=== PATIENT | male | born 1945 | race Caucasian/White ===

== ENCOUNTER → 2016-11-02 | Outpatient (CLI) | payer MEDICARE, OTHER | LOC: RAD 08:41 | PROVIDERS: ATTEND Surgery | DX: I71.4 Abdominal aortic aneurysm, without rupture (principal) | CPT/HCPCS: 76770 ==

== ENCOUNTER → 2016-11-08 | Outpatient (CLI) | payer MEDICARE, OTHER ==
--- NOTE | 2016-11-08 10:34 | RADIOLOGY REPORT (SQ) ---
EXAM DESCRIPTION: CT ABD/PELVIS WITH IV ORAL COMPLETED DATE/TIME: 11/08/2016 8:23 am REASON FOR STUDY: AAA W/O RUPTURE (I71.4) I71.4 ABDOMINAL AORTIC ANEURYSM, WITHOUT RUPTURE COMPARISON: None. TECHNIQUE: CT scan of the abdominal aorta extending to the iliac bifurcation performed with intraven ous contrast using helical scanning technique with dynamic intravenous contrast injection. Images rev iewed with lung, soft tissue, and bone windows. Reconstructed coronal and sagittal MPR images reviewe d. All images stored on PACS. Advanced 3D imaging as volume rendering, MIPS, SSD performed? yes All CT scanners at this facility use dose modulation, iterative reconstruction, and/or weight based d osing when appropriate to reduce radiation dose to as low as reasonably achievable (ALARA). [facility]: Dose Right [facility]: CareDose [facility]: Dose Right [facility]: Teradose 4D [facility]: Harbour Antibodies CONTRAST TYPE AND DOSE: 95mL Isovue 370- low osmolar. RENAL FUNCTION: Creatinine 0.7 LIMITATIONS: None. FINDINGS: AORTA AND VESSELS: 4.8 cm infrarenal abdominal aortic aneurysm. Heavy atherosclerotic reyna cification. Mesenteric and single bilateral renal arteries are patent. Heavily calcified iliac enoc ender. No geovani iliac artery aneurysm. No venous clot. Patent portal vein. LUNG BASES: Basilar bullous changes. Small hiatal hernia. LIVER: Normal size. No masses or dilated ducts. SPLEEN: Normal size. No focal lesions. PANCREAS: No masses. No significant calcifications. No adjacent inflammation or peripancreatic fluid collections. Pancreatic duct not dilated. GALLBLADDER: No identified stones by CT criteria. No inflammatory changes to suggest cholecystitis. ADRENAL GLANDS: No significant masses or asymmetry. RIGHT KIDNEY AND URETER: Numerous cysts. Small anterior exophytic 1.8 cm lesion is probably a compli cated cyst with Hounsfield units in the 50s. Incompletely evaluated. Remaining cysts are larger and generally simple. LEFT KIDNEY AND URETER: Nonobstructive nephrolithiasis. Cysts. No solid mass. RETROPERITONEUM: No retroperitoneal adenopathy, hemorrhage or masses. BOWEL AND PERITONEAL CAVITY: No masses or inflammatory changes. No free fluid or peritoneal masses. APPENDIX: Normal. ABDOMINAL WALL: No masses. No hernias. BONY STRUCTURES: No significant or acute findings. 3-D IMAGING: Confirms the above findings. OTHER: No other significant finding. IMPRESSION: Infrarenal abdominal aortic aneurysm measures 4.8 cm. TECHNICAL DOCUMENTATION: JOB ID: [id number] Quality ID # [id number]: Final reports with documentation of one or more dose reduction techniques (e.g., Au tomated exposure control, adjustment of the mA and/or kV according to patient size, use of iterative reconstruction technique) 2010 [employer]- All Rights Reserved
== END ==
LOC: RAD 07:16
PROVIDERS: ATTEND Surgery
DX: I71.4 Abdominal aortic aneurysm, without rupture (principal)
CPT/HCPCS: 74177; 82565

== ENCOUNTER 2016-12-14 05:30 | Inpatient (IN) | payer MEDICARE, OTHER ==
[2016-12-07 09:32] LABS: HEMATOCRIT 43.6 % (37.9-51.0); HEMOGLOBIN 14.6 g/dL (13.5-17.0); HGB HCT DIFFERENCE 0.2; MEAN CORPUSCULAR HEMOGLOBIN 32.5 pg (27.0-33.4); MEAN CORPUSCULAR HGB CONC 33.6 g/dL (32.0-36.0); MEAN CORPUSCULAR VOLUME 97 fl (80-97); RED BLOOD COUNT 4.51 10^6/uL (4.35-5.55); WHITE BLOOD COUNT 6.6 10^3/uL (4.0-10.5)
[2016-12-07 10:01] LABS: ALANINE AMINOTRANSFERASE 39 U/L (21-72); ALBUMIN 3.9 g/dL (3.5-5.0); ALKALINE PHOSPHATASE 61 U/L (38-126); ANION GAP 11 (5-19); ASPARTATE AMINO TRANSFERASE 28 U/L (17-59); BILIRUBIN,DIRECT 0.3 mg/dL (0.0-0.4); BILIRUBIN,TOTAL 0.6 mg/dL (0.2-1.3); BLOOD UREA NITROGEN 17 mg/dL (7-20); CALCIUM 8.9 mg/dL (8.4-10.2); CARBON DIOXIDE 24 mmol/L (22-30); CHLORIDE 106 mmol/L (98-107); CREATININE RESULT 0.73 mg/dL (0.52-1.25); GLUCOSE 129 mg/dL (75-110); POTASSIUM 4.3 mmol/L (3.6-5.0); SODIUM 141.2 mmol/L (137-145); TOTAL PROTEIN 6.5 g/dL (6.3-8.2)
--- NOTE | 2016-12-07 17:01 | EKG REPORT ---
SEVERITY:- ABNORMAL ECG - SINUS RHYTHM LEFT ANTERIOR FASCICULAR BLOCK : Confirmed by: Melissa Zelaya MD 07-Dec-2016 17:01:28
[~2016-12-14 05:30] MED LIST: AMPICILLIN SODIUM/SULBACTAM NA 3 GM in NORMAL SALINE 100 ML IV PRN; LACTATED RINGERS 1000 ML IV PRN; LIDOCAINE 0.5% INJ-PF (5 MG/ML) 50 ML SDV SUBCUT PRN
[2016-12-14] MEDS ORDERED: MIDAZOLAM 2 MG/2 ML INJ ONE (06:26)
[2016-12-14] MEDS ORDERED: FENTANYL CITRATE INJ/PF 100 MCG/2 ML AMPUL ONE (06:26)
[2016-12-14] MEDS ORDERED: FENTANYL CITRATE INJ/PF 250 MCG/5 ML AMPULE ONE (06:26)
[2016-12-14] MEDS ORDERED: MORPHINE SULFATE 10 MG/ML INJ ONE (06:27)
[2016-12-14] MEDS ORDERED: DEXMEDETOMIDINE INJ 80 MCG/20 ML VIAL IV ONE (06:27)
[2016-12-14] MEDS ORDERED: EPHEDRINE SULFATE INJ 50 MG/1 ML AMPULE ONE (06:27)
[2016-12-14] MEDS ORDERED: ACETAMINOPHEN 100 ML IV ONE (06:27)
[2016-12-14] MEDS ORDERED: PROPOFOL INJ 200 MG/20 ML VIAL IV ONE (06:27)
[2016-12-14] MEDS ORDERED: BUPIVACAINE INJ/PF LIPOSOME/PF 266 MG/20 ML SDV ONE (06:53)
[2016-12-14] MEDS ORDERED: BUPIVACAINE HCL 0.25 % INJ/PF (2.5 MG/1 ML) 30 ML VIAL ONE (06:53)
[2016-12-14] MEDS ORDERED: METOPROLOL SUCCINATE 25 MG TAB.SR.24H PO ONE (07:05)
[2016-12-14] MEDS ORDERED: FENTANYL CITRATE INJ/PF 100 MCG/2 ML AMPUL IV PRN ×3 (08:16)
[2016-12-14] MEDS ORDERED: MORPHINE SULFATE 10 MG/ML INJ IV PRN (08:16)
[2016-12-14] MEDS ORDERED: DIPHENHYDRAMINE HCL 50 MG/ML VIAL IV PRN (08:16)
[2016-12-14] MEDS ORDERED: MEPERIDINE HCL/PF INJ 25 MG/1 ML DISP.SYRIN IV PRN (08:16)
[2016-12-14] MEDS ORDERED: PROMETHAZINE HCL INJ 25 MG/1 ML VIAL IV PRN ×2 (08:16)
[2016-12-14] MEDS ORDERED: OXYCODONE-ACETAMINOPHEN 5-325 MG TABLET PO PRN ×2 (08:16)
[2016-12-14] MEDS ORDERED: PHARMACY COMMUNICATION ORDER MC NR (11:30)
[2016-12-14] MEDS ORDERED: GLUCAGON,HUMAN RECOMB 1 MG INJ SUBCUT PRN (11:36)
[2016-12-14] MEDS ORDERED: DEXTROSE 40% GEL 15 GM TUBE PO PRN ×2 (11:36)
[2016-12-14] MEDS ORDERED: DEXTROSE 50%-WATER 25 GM/50 ML DISP.SYRIN IV PRN ×2 (11:36)
--- NOTE | 2016-12-14 11:43 | Operative Report ---
Operative Report DATE OF SURGERY: 12/14/16 PREOPERATIVE DIAGNOSIS: Tubulovillous adenoma of the transverse colon; multiple colon polyps status post polypectomy POSTOPERATIVE DIAGNOSIS: Same OPERATION: 1. Laparoscopic conversion to open partial colectomy (distal transverse colon, splenic flexure, and proximal descending colon). . 2. Handsewn transverse-descending colostomy. 3. Partial omentectomy SURGEON: FLORIDA MARADIAGA CIGAR PACKER AND SORTER: CASEY ALVAREZ ANESTHESIA: GA TISSUE REMOVED OR ALTERED: Portion of colon; With specimen; portion of omentum COMPLICATIONS: none ESTIMATED BLOOD LOSS: 250 cc INTRAOPERATIVE FINDINGS: See below PROCEDURE: The patient was taken to the preop holding area the main operating room where general anesthesia was induced. Arms placed supine position legs tucked. The abdomen was exposed, prepped draped sterile fashion and instrumentation set up for laparoscopic possible conversion to open colectomy Surgical plan and surgical timeout were conducted Radiographic imaging and previous operative report reviewed. The findings were significant for a known tubulovillous adenoma of the distal transverse colon versus descending colon. We therefore prepared the patient for a proximal left colectomy. Skin was anesthetized 1% lidocaine with epinephrine. A supraumbilical vertical incision made and we immediately entered into the peritoneal cavity. A 5 mm port was inserted into the peritoneal cavity, and a 5 mm flexible scope was inserted. Under direct visualization for additional ports were placed 2 in the upper quadrant and 2 in the lower quadrants left and right respectively. Visualization the peritoneal cavity revealed no evidence of metastatic disease. There was significant adhesions between the greater omentum and the left upper quadrant. We began the operation by opening up the white line of Toldt along the left paracolic gutter with the patient positioned in an extreme right side down left side up. We took this up to the adhesions previously described and all of these adhesions between the omentum and the anterior and anterior lateral abdominal wall were taken down with LigaSure device. We encountered a minimal amount of bleeding. There was significant amount of redundant omentum and loss of tissue planes between the omentum and the splenic flexure of the colon. For this reason we decided to approach the transverse colon from patient's midline We could easily see the tattoo again in fact there were 2 tattoos stains 1 in the more proximal transverse colon just left of midline on the inferior caudal surface of the transverse colon, and a second tattoo in a more distal apical anterior position in the gastrocolic omentum. Photos were taken. We elevated the transverse colon, and began taking down the omentum inferiorly so that we can get to the antimesenteric side of the transverse colon. We proceeded again methodically with good visualization from the patient's right to the patient's left side heading toward the splenic flexure. Unfortunately after about 45 minutes of operating laparoscopically, it was concluded that the tissue planes in terms of th gastrocolic omentume from the transverse colon especially as we moved towards the splenic flexure were nearly completely fused. Therefore we decided to convert to an open operation. All laparoscopic instruments and ports removed. The patient was open to a standard midline incision from the subxiphoid to the umbilicus. This is approximately 15 cm in length. Bookwalter retractor was established. We examined the intra-abdominal anatomy and appreciated the known abdominal aortic aneurysm. We also appreciated the obscuring of the omental and transverse colon tissue planes as previously described Using a open hand-held LigaSure device, we took the gastrocolic omentum off of the anterior surface of the transverse colon from approximately 6-7 cm proximal to the most proximal inking spot then moving to the patient's left towards the splenic flexure. We repositioned our retractors and began mobilizing the entire splenic flexure and then used this is a entry point to communicate with the previous plane of dissection along the ascending colon. We now chose a suitable site for transection of the transverse colon proximal to the inking. This was accomplished with a NICOLE 55 stapler. We then scored the distal transverse mesocolon with cautery and the mesenteric tissue down with the LigaSure device. This was over the bare area so we were distal to the branches of the middle colic, and proximal to the left colic arteries. The splenic flexure was completely taken down under direct visualization with LigaSure device. We mobilized a further distance along the white line of Toldt distally so as to completely free up the midportion of the descending colon. A suitable site for transection of the descending colon approximately mid position was then taken and the colon divided with a second firing of the blue load NICOLE [address] Petersen took the specimen of the back table opened it and found the tumor at the more proximal inking spot. The specimen was subsequently sent to pathology with Dr. Garry Day examined it and felt that our margins were satisfactory. We now took down a portion of the omentum essentially a 30% omentectomy so as to free up the proximal transverse colon in anticipation of our anastomosis. The left colon had a few more attachments freed up so that the left colon mesentery was under no tension. We brought the transverse colon adjacent to the descending colon in anticipation initially of a stapled [id number] functional end-to-end anastomosis, but in my estimation, the degree of tension was too great. We will also dealing with the abdominal aortic aneurysm which produced some elevation to the retroperitoneal tissues. Furthermore shy of mobilizing more the proximal transverse colon, I felt that an alternative approach to the anastomosis was appropriate. Therefore we brought both the transverse colon and descending colon next to each other in a side to side railroad track fashion and completed a handsewn 2 layer anastomosis. This was accomplished with a running outer layer of 3-0 PDS suture and the inner running layer using 3-0 Vicryl suture. The length of the anastomosis was approximately 3 cm. The bowel was healthy and clean. There was no significant tension, and the vascularity was excellent. Once the anastomosis was complete, we were very satisfied with the lay of the tissue in terms of freedom from tension. We laid the anastomosis where it was generated, and did not formally closed and the mesenteric defect. Small bowel was returned to its anatomic position and the remaining omentum positioned into the pelvis. The nasogastric tube is confirmed to be in good position. This point felt the operation was complete. Peritoneal cavity irrigated out several times with warm saline, and there was no evidence of mechanical bleeding. We chose not to place a drain. The patient was hemodynamically stable throughout the entire course, and estimated blood loss to be approximately 250 cc. Patient made approximately 400 cc urine during the case. Sponge and counts were correct. Abdomen closed with 2 double-stranded #1 PDS sutures, all incisions closed with yong and approximately 40 cc of diluted Exparel instilled into the subcutaneous tissues. Postop procedure well, extubated and taken recovery in stable condition FOSTER Alvarez assisted with port insertion, tissue retraction, anastomosis completion and incision and staple closure as there was no general surgeon available to assist.
[2016-12-14] MEDS ORDERED: METOCLOPRAMIDE HCL INJ/PF 10 MG/2 ML SDV ONE (11:45)
[2016-12-14] MEDS ORDERED: PROMETHAZINE HCL INJ 25 MG/1 ML VIAL ONE (12:07)
[2016-12-14 13:30] LABS: HEMATOCRIT 37.4 % (37.9-51.0); HEMOGLOBIN 12.3 g/dL (13.5-17.0); HGB HCT DIFFERENCE -0.5; MEAN CORPUSCULAR HEMOGLOBIN 32.4 pg (27.0-33.4); MEAN CORPUSCULAR HGB CONC 32.9 g/dL (32.0-36.0); MEAN CORPUSCULAR VOLUME 99 fl (80-97); RED BLOOD COUNT 3.79 10^6/uL (4.35-5.55); RED CELL DISTRIBUTION WIDTH 13.4 % (11.5-14.0)
[2016-12-14] MEDS ORDERED: ONDANSETRON HCL INJ/PF 4 MG/2 ML SDV ONE ×2 (13:44→14:38)
[2016-12-14] MEDS ORDERED: DEXAMETHASONE SOD PHOSPHATE INJ 4 MG/1 ML VIAL ONE (14:38)
[2016-12-14] MEDS ORDERED: KETOROLAC TROMETHAMINE 60 MG/2 ML SDV ONE (14:38)
[2016-12-14] MEDS ORDERED: SUCCINYLCHOLINE CHLORIDE INJ 200 MG/10 ML VIAL ONE (14:38)
[2016-12-14] MEDS ORDERED: LIDOCAINE 2% INJ-PF (20 MG/ML) 10 ML AMPUL ONE (14:38)
[2016-12-14] MEDS ORDERED: GLYCOPYRROLATE INJ 0.4 MG/2 ML VIAL ONE (14:38)
[2016-12-14] MEDS ORDERED: ROCURONIUM BROMIDE INJ 50 MG/5 ML VIAL IV ONE (14:38)
[2016-12-14] MEDS ORDERED: NEOSTIGMINE METHYLSULFATE 10 MG/10 ML VIAL ONE (14:38)
[2016-12-14] MEDS: ACETAMINOPHEN 100 ML IV SCH ×3 (15:42→23:32)
[2016-12-14] MEDS: KETOROLAC TROMETHAMINE INJ/PF 30 MG/1 ML SDV IV SCH ×2 (17:14→23:32)
[2016-12-14] MEDS: MORPHINE SULFATE 10 MG/ML INJ IV PRN (22:02)
[2016-12-14] MEDS: AMPICILLIN SODIUM/SULBACTAM NA 3 GM in NORMAL SALINE 100 ML IV SCH (22:03)
[2016-12-15] MEDS: DEXTROSE 5%-LACTATED RINGERS 1,000 ML IV PRN ×2 (02:58→22:59)
[2016-12-15] MEDS: AMPICILLIN SODIUM/SULBACTAM NA 3 GM in NORMAL SALINE 100 ML IV SCH (05:58)
[2016-12-15] MEDS: KETOROLAC TROMETHAMINE INJ/PF 30 MG/1 ML SDV IV SCH ×4 (05:58→22:59)
[2016-12-15] MEDS: ACETAMINOPHEN 100 ML IV SCH ×4 (05:59→23:00)
--- NOTE | 2016-12-15 08:41 | PDOC PROGRESS REPORT ---
Subjective Progress Note for:: 12/15/16 Subjective:: Patient is postop day 1 status post partial colectomy, open. Patient did well overnight, with minimal nasogastric drainage. His pain is controlled. Physical Exam Vital Signs: Temp Pulse Resp BP Pulse Ox 98.3 F 49 L 16 126/67 H 93 12/14/16 23:45 12/14/16 23:45 12/14/16 23:45 12/14/16 23:45 12/15/16 00:03 Intake & Output 12/14/16 12/15/16 12/16/16 06:59 06:59 06:59 Intake Total 0 6410 Output Total 3305 Balance 0 3105 Weight 89.81 kg 88.1 kg General appearance: PRESENT: no acute distress GI/Abdominal exam: PRESENT: other - Abdominal binder in place; minimal abdominal distention Results Laboratory Results: 12/14/16 12:04 12/07/16 08:50 12/14/16 12/14/16 12:04 12:04 WBC 16.0 H RBC 3.79 L Hgb 12.3 L Hct 37.4 L MCV 99 H MCH 32.4 MCHC 32.9 RDW 13.4 Plt Count 127 L Blood Type A NEGATIVE Antibody Screen NEGATIVE Assessment & Plan - Diagnosis (1) Tubulovillous adenoma of colon Is this a current diagnosis for this admission?: YesPlan: Patient doing well status post open partial colectomy with handsewn colocolonic anastomosis, no postoperative complications thus far. Plan: 1. DC Guthrie catheter 2. DC nasogastric tube 3. Start sips of ice chips. 4. Ambulate patient in the hallways.
[2016-12-15] MEDS: MORPHINE SULFATE 10 MG/ML INJ IV PRN (22:59)
[2016-12-16] MEDS: ACETAMINOPHEN 100 ML IV SCH (05:33)
[2016-12-16] MEDS: KETOROLAC TROMETHAMINE INJ/PF 30 MG/1 ML SDV IV SCH ×4 (05:33→23:25)
--- NOTE | 2016-12-16 11:15 | PDOC PROGRESS REPORT ---
Subjective Progress Note for:: 12/16/16 Subjective:: Patient has had Guthrie catheter removed and he is voiding. He is taking a shower and has ambulated in the halls. He had one episode of flatus. Last night he had some pain management issues Physical Exam Vital Signs: Temp Pulse Resp BP Pulse Ox 97.9 F 52 L 18 210/86 H 96 12/16/16 07:55 12/16/16 07:55 12/16/16 07:55 12/16/16 07:55 12/16/16 07:55 Intake & Output 12/15/16 12/16/16 12/17/16 06:59 06:59 06:59 Intake Total 6410 700 Output Total 3305 475 Balance 3105 225 Weight 88.1 kg 87.5 kg General appearance: PRESENT: no acute distress GI/Abdominal exam: PRESENT: other - Nontender no peritoneal signs no rigidity operative incision well-healed. Abdomen slightly distended Results Laboratory Results: 12/14/16 12:04 12/07/16 08:50 Assessment & Plan - Diagnosis (1) Tubulovillous adenoma of colon Is this a current diagnosis for this admission?: YesPlan: Postoperative day 2 status post open partial colectomy with handsewn anastomosis doing reasonably well postoperative day 2 plan: 1. Resume home medications 2. Start clear liquids 3. Continue ambulation.
[2016-12-16] MEDS ORDERED: METOPROLOL SUCCINATE 25 MG TAB.SR.24H PO ONE (12:30)
[2016-12-16] MEDS ORDERED: LOSARTAN POTASSIUM 50 MG TABLET PO ONE (12:30)
[2016-12-16] MEDS: METFORMIN HCL 500 MG TABLET PO SCH (17:40)
[2016-12-16] MEDS: DEXTROSE 5%-LACTATED RINGERS 1,000 ML IV PRN (22:14)
[2016-12-16] MEDS: MORPHINE SULFATE 10 MG/ML INJ IV PRN (23:30)
[2016-12-17] MEDS: KETOROLAC TROMETHAMINE INJ/PF 30 MG/1 ML SDV IV SCH ×3 (05:27→17:47)
[2016-12-17] MEDS ORDERED: (PENDING PHARMACY ID) (Metformin Hcl [Metformin Hcl Er] 500 MG) PO SCH (08:00)
[2016-12-17] MEDS: METFORMIN HCL 500 MG TABLET PO SCH ×2 (09:00→17:47)
[2016-12-17] MEDS: METOPROLOL SUCCINATE 25 MG TAB.SR.24H PO SCH (09:32)
[2016-12-17] MEDS: LOSARTAN POTASSIUM 50 MG TABLET PO SCH (09:32)
[2016-12-17] MEDS: FINASTERIDE 5 MG TABLET PO SCH (09:32)
--- NOTE | 2016-12-17 13:18 | PROGRESS NOTE E ---
Progress Note NAME: COLLEEN GROVER : 1945 AGE: 71Y DATE: 12/17/2016 ROOM: 414 SUBJECTIVE: The patient is about 3 days post large bowel resection by Dr. Petersen. Last night he had some vomiting and therefore his feedings were held. This morning he had some flatus and no nausea or vomiting. His abdomen is soft and nontender. Incision site is clean and dry. PLAN: Resume his clear liquids this morning and increase to soft diet as tolerated. DICTATING PHYSICIAN: MOSES WHITTEN M.D. [id number] PHY#: [id number] ID: [id number] JOB#: [id number] ACCT: [id number] cc: >
[2016-12-17] MEDS: DEXTROSE 5%-LACTATED RINGERS 1,000 ML IV PRN (20:32)
[2016-12-18] MEDS: KETOROLAC TROMETHAMINE INJ/PF 30 MG/1 ML SDV IV SCH ×4 (00:28→18:30)
[2016-12-18] MEDS: DEXTROSE 5%-LACTATED RINGERS 1,000 ML IV PRN (06:03)
[2016-12-18] MEDS: LOSARTAN POTASSIUM 50 MG TABLET PO SCH (12:28)
[2016-12-18] MEDS: FINASTERIDE 5 MG TABLET PO SCH (12:28)
[2016-12-18] MEDS: METOPROLOL SUCCINATE 25 MG TAB.SR.24H PO SCH (12:28)
--- NOTE | 2016-12-18 12:38 | PROGRESS NOTE E ---
Progress Note NAME: COLLEEN GROVER : 1945 AGE: 71Y DATE: 12/18/2016 ROOM: 414 SUBJECTIVE: This morning the patient had just a small amount of bowel movement. He claims he also had a bowel movement last night. He was able to tolerate clear liquids this morning, but for lunch he felt full and can only drink a small amount of his Ensure. He claims his pain is still requiring parenteral pain medications. OBJECTIVE: ABDOMEN: On examination his abdomen is slightly distended but soft and nontender. Incision is clean and dry. PLAN: We will continue him on full liquids for now and as suggested also by Dr. Petersen to the nurse. Will continue him on IV Toradol. DICTATING PHYSICIAN: MOSES WHITTEN M.D. [id number] PHY#: [id number] ID: [id number] JOB#: [id number] ACCT: [id number] cc:MOSES WHITTEN M.D. >
[2016-12-18] MEDS: METFORMIN HCL 500 MG TABLET PO SCH ×2 (15:41→18:33)
[2016-12-18] MEDS ORDERED: HYDRALAZINE HCL INJ/PF 20 MG/1 ML SDV IV PRN (18:08)
[2016-12-19] MEDS: KETOROLAC TROMETHAMINE INJ/PF 30 MG/1 ML SDV IV SCH ×2 (02:08→06:06)
[2016-12-19] MEDS: FINASTERIDE 5 MG TABLET PO SCH (09:32)
[2016-12-19] MEDS: METOPROLOL SUCCINATE 25 MG TAB.SR.24H PO SCH (09:33)
[2016-12-19] MEDS: METFORMIN HCL 500 MG TABLET PO SCH ×2 (09:33→17:48)
[2016-12-19] MEDS: LOSARTAN POTASSIUM 50 MG TABLET PO SCH (09:34)
[2016-12-19] MEDS: AMLODIPINE BESYLATE 10 MG TABLET PO SCH (09:34)
--- NOTE | 2016-12-19 09:54 | PDOC PROGRESS REPORT ---
Subjective Progress Note for:: 12/19/16 Subjective:: Patient is tolerating full liquid diet, had flatus Physical Exam Vital Signs: Temp Pulse Resp BP Pulse Ox 98.8 F 87 12 152/106 H 96 12/19/16 07:33 12/19/16 07:33 12/19/16 07:33 12/19/16 07:33 12/19/16 07:33 Intake & Output 12/18/16 12/19/16 12/20/16 06:59 06:59 06:59 Intake Total 2725 2350 Output Total 250 500 Balance 2475 1850 Weight 86.7 kg 86.6 kg General appearance: PRESENT: no acute distress GI/Abdominal exam: PRESENT: other - Slightly distended abdominal findings; all yong out. No tenderness. Results Laboratory Results: 12/14/16 12:04 12/07/16 08:50 Assessment & Plan - Diagnosis (1) Tubulovillous adenoma of colon Is this a current diagnosis for this admission?: YesPlan: Patient is postoperative day 5, doing well, tolerating full liquid diet; Plan: 1. I reviewed patient's pathoanatomy. He does have a handsewn anastomosis and may have some edema associated with that. I suggested he stay on full liquids for now 2. Anticipate discharge home later today if he continues to do well.
--- NOTE | 2016-12-19 13:49 | CONSULTATION REPORT E ---
Consultation Report NAME: COLLEEN GROVER : 1945 AGE: 71Y DATE: 12/19/2016 ROOM: 414 A TO: ANIA RINCON NP FROM: FLORIDA SHER M.D. Requesting Physician CODE STATUS: FULL CODE. REASON FOR CONSULTATION: Hypertensive management in the postoperative patient. HISTORY OF PRESENT ILLNESS: The patient is a 71-year-old male with a past medical history of hypertension. The patient was scheduled for outpatient procedure given findings of tubulovillous adenoma of the transverse colon as well as multiple polyps, status post polypectomy. The patient was taken to the OR and underwent colectomy of this area and given the patient's hypertension was sent to the floor. The patient did require a partially open procedure. The patient's diet has been slowly advanced during his stay; however, the patient's blood pressure, which is hypertensive at baseline, has continued to increase. Blood pressure today is found to be 152/106. The patient currently is on Cozaar 100 mg as well as Toprol XL 25 mg daily but has remained hypertensive. The patient was given a p.r.n. dose of hydralazine overnight and the hospitalist has been consulted to aid in the medical management. PAST MEDICAL HISTORY: Remarkable for: 1. Hypertension. 2. Diabetes mellitus, type 2. 3. Benign prostatic hyperplasia. 4. Hyperlipidemia. PAST SURGICAL HISTORY: Remarkable for: 1. Colectomy. 2. Tonsillectomy. 3. Lindsay teeth extraction. 4. Cataract surgery. ALLERGIES: No known drug allergies. MEDICATIONS: Home medications include: 1. Proscar 5 mg p.o. daily. 2. Cozaar 100 mg p.o. daily. 3. Metformin ER 500 mg p.o. every morning. 4. Toprol XL 25 mg p.o. daily. 5. Flomax 0.4 mg p.o. daily. SOCIAL HISTORY: The patient currently resides at home with his who is also his surrogate decision maker, Ariadna Argueta, who may be reached at [phone]. The patient denies any alcohol use or illicit drug use. The patient stopped smoking about 8 years ago with a history of about 30-35 pack years. FAMILY MEDICAL HISTORY: Family medical history is positive for family history of coronary artery disease. The patient does have children who are healthy. Siblings with coronary artery disease. Uncertain of parental history. REVIEW OF SYSTEMS: CONSTITUTIONAL: The patient denies any fevers, chills, dizziness or weakness. No loss of appetite. INTEGUMENTARY: Denies any diaphoresis, rashes, bruising, itching. HEENT: Denies any vision changes, hearing loss, nasal drainage, sore throat. No headaches. CARDIOVASCULAR: Denies any chest pain, edema, heart palpitations. RESPIRATORY: Denies any shortness of breath, cough, sputum production or hemoptysis. GASTROINTESTINAL: Denies any nausea, vomiting, diarrhea, bloody hematemesis, constipation, melena, hematochezia. No epigastric pain. The patient does have postoperative abdominal pain which is improving. GENITOURINARY: Denies any hematuria, pyuria or dysuria. MUSCULOSKELETAL: Denies any acute or chronic joint pain. NEUROLOGICAL: Denies any seizures, tremors, loss of consciousness. HEMATOLOGICAL: Denies any geovani bleeding or any easy bruising. ENDOCRINE: Denies any recent weight changes. PSYCHIATRIC: Denies suicidal or homicidal ideation. The rest of review of the other organ systems is negative. PHYSICAL EXAMINATION: GENERAL: On examination, the patient is a well-developed, well-nourished 71-year-old male who is awake, alert, and oriented to person, place, time, and situation. He is verbal, conversational, ambulatory. He does not appear to be in acute distress. VITAL SIGNS: As follows: Temperature is 98.8, pulse 87, respirations 12, blood pressure is 152/106, oxygen saturation is 96% on room air. SKIN: Warm and dry. No rash, not diaphoretic. HEENT: Pupils equal, round, reactive to light and accommodation. Conjunctivae pink. No JVP. CARDIOVASCULAR: Heart is regular. No murmur or rub. CHEST: Clear, symmetrical, unlabored. ABDOMEN: Soft, nontender, nondistended, postsurgical. Bowel sounds present. BACK: No CVA tenderness or sacral edema. EXTREMITIES: No clubbing, cyanosis, edema. PSYCHIATRIC: Appropriate affect. Pleasant mood. DIAGNOSTICS: Lab values are as follows. Hematology obtained on 12/14/2016: WBCs are 16.3, hemoglobin is 12.3, hematocrit is 37.8, platelet count is 127,000. Chemistry obtained on 12/07/2016: Sodium is 141, potassium 4.3, chloride is 106, carbon dioxide 24, BUN 17, creatinine 0.73, glucose 129, calcium is 8.9, magnesium is 2.1. Bilirubin 0.6, AST 89, ALT 39, alk phos 61, total protein 6.5, albumin 3.9. IMPRESSION AND PLAN: 1. Hypertension. This has been difficult to control. Continue home blood pressure medications and will add Norvasc and follow. I have sent a new prescription to the pharmacy. 2. Diabetes mellitus, type 2. Will continue the patient's home medications as well as sliding-scale coverage. 3. Benign prostatic hyperplasia. Will continue the patient's home medications. 4. DVT prophylaxis. Management as per Surgery. 5. Postoperative colectomy. Management as per Surgery. DISPOSITION: THE PATIENT IS A FULL CODE. Pending the patient's symptomatology and diagnostic findings, will re-evaluate as needed. The patient is clear to discharge from a medical perspective with new medication. As always, would like to thank the surgicalist for allowing the hospitalist to participate in the care of this nice patient. Time spent on this consultation, including assessment/plan, physical examination, patient education, and specialty collaboration, is 30 minutes. DICTATING PHYSICIAN: ANIA RINCON NP [id number] PHY#: [id number] ID: [id number] JOB#: [id number] ACCT: [id number] cc:ANIA RINCON NP > [facility]
[2016-12-20] MEDS ORDERED: METOPROLOL SUCCINATE 25 MG TAB.SR.24H PO SCH (08:00)
[2016-12-20] MEDS ORDERED: TAMSULOSIN HCL 0.4 MG CAP.SR.24H PO SCH (10:00)
[2016-12-20] MEDS: METFORMIN HCL 500 MG TABLET PO SCH (10:18)
[2016-12-20] MEDS: LOSARTAN POTASSIUM 50 MG TABLET PO SCH (10:19)
[2016-12-20] MEDS: AMLODIPINE BESYLATE 10 MG TABLET PO SCH (10:21)
[2016-12-20] MEDS: FINASTERIDE 5 MG TABLET PO SCH (10:21)
[2016-12-20 11:30] VITALS: BP 165/97
--- NOTE | 2016-12-20 11:49 | DISCHARGE SUMMARY E ---
Discharge Summary NAME: COLLEEN GROVER : 1945 AGE: 71Y ADMITTED: 12/14/2016 DISCHARGED: 12/20/2016 FINAL DIAGNOSIS: Tubulous adenoma of the left colon. OTHER DIAGNOSES: 1. Hypertension. 2. History of alcohol abuse. PROCEDURE: Left colectomy by Dr. Petersen on December 14. COMPLICATION: None HOSPITAL COURSE: This is a 71-year-old male with large tubulous adenoma of the left colon tubulovillous adenoma. The patient underwent left hemicolectomy by Dr. Petersen on December 14 and the procedure was eventful. His postop course was eventful. His diet was advanced from clear liquids to full liquid diet which was well tolerated. The patient was passing flatus. On the day of discharge, the patient had no complaints. He had large amount of flatus. He was able to tolerate a full liquid diet well. His physical exam was unremarkable. Vital signs were stable with blood pressure 135/96. DISCHARGE ORDERS: The patient was discharged on December 20, 2016 and was given a followup appointment with Dr. Petersen in the office within a week. He was given a followup appointment with his medical doctor within a week. He was instructed to take Tylenol 325 one p.o. q.6 p.r.n. for pain and Aleve 220 mg p.o. b.i.d. p.r.n. for pain. He was instructed to shower only for 2 weeks or until yong are out of place. The patient was instructed not to perform any heavy lifting or straining more than 10 pounds for about 3 months. He was instructed to take his blood pressure medications and was given a full liquid diet for about a week. Subsequently diet could be advanced by Dr. Petersen in the office. DICTATING PHYSICIAN: TAYLOR ELLSWORTH M.D. [id number] PHY#: [id number] ID: [id number] JOB#: [id number] ACCT: [id number] cc:FLORIDA PETERSEN M.D., GIOVANNI M.D. > [facility]
--- NOTE | 2016-12-20 12:03 | PROGRESS NOTE E ---
Progress Note NAME: COLLEEN GROVER : 1945 AGE: 71Y DATE: 12/20/2016 ROOM: 414 SUBJECTIVE: The patient has no complaints. He is tolerating full liquid diet well. He is passing a large amount of flatus. OBJECTIVE: VITAL SIGNS: Stable. The patient is afebrile. All vital signs within normal limits. Blood pressure 135/96. ABDOMEN: Soft, nondistended, nontender. Midline incision clean, dry and intact. REVIEW OF LABS: No new labs available today. ASSESSMENT: 1. Postop day #6 following left hemicolectomy for tubulovillous adenoma. 2. Patient hemodynamically stable, afebrile. 3. Improved blood pressure. 4. Full liquid diet tolerated. 5. Physical exam unremarkable. PLAN: 1. The patient to be discharged home today. 2. Full liquid diet for a week. 3. Follow up with Dr. Petersen in the office next week. 4. Follow up with the patient's family care physician next week for his blood pressure medication. 5. The patient will be given Tylenol and Aleve for pain. 6. Shower only for 2 weeks or until the yong are in place. 7. Patient to refrain from heavy lifting or straining more than 10 pounds for about 3 months. DICTATING PHYSICIAN: TAYLOR ELLSWORTH M.D. [id number] PHY#: [id number] ID: [id number] JOB#: [id number] ACCT: [id number] cc: > SIDNEYD
--- NOTE | 2016-12-20 12:23 | PDOC PROGRESS REPORT ---
Subjective Progress Note for:: 12/20/16 Subjective:: Patient seen on morning rounds. He is resting in bed. His is at the bedside. He states he is feeling much better and wants to go home. His blood pressure has improved with medication changes. He denies any abdominal pain, nausea or vomiting. He is passing lots of gas, but has not had a bowel movement yet. He denies any other complaints. Remaining review of systems is negative Physical Exam Vital Signs: Temp Pulse Resp BP Pulse Ox 98.2 F 106 H 12 165/97 H 98 12/20/16 11:22 12/20/16 11:22 12/20/16 11:22 12/20/16 11:22 12/20/16 11:22 Intake & Output 12/19/16 12/20/16 12/21/16 06:59 06:59 06:59 Intake Total 2350 1320 Output Total 500 Balance 1850 1320 Weight 86.6 kg 86.9 kg General appearance: PRESENT: no acute distress, obese, well-developed, well- nourished Head exam: PRESENT: atraumatic, normocephalic Eye exam: PRESENT: conjunctiva pink, EOMI, PERRLA. ABSENT: scleral icterus Ear exam: PRESENT: normal external ear exam Mouth exam: PRESENT: moist, tongue midline Neck exam: ABSENT: carotid bruit, JVD, lymphadenopathy, thyromegaly Respiratory exam: PRESENT: clear to auscultation shahzad. ABSENT: rales, rhonchi, wheezes Cardiovascular exam: PRESENT: RRR. ABSENT: diastolic murmur, rubs, systolic murmur Pulses: PRESENT: normal dorsalis pedis pul Vascular exam: PRESENT: normal capillary refill GI/Abdominal exam: PRESENT: normal bowel sounds, soft. ABSENT: distended, guarding, mass, organolmegaly, rebound, tenderness Rectal exam: PRESENT: deferred Extremities exam: PRESENT: full ROM. ABSENT: calf tenderness, clubbing, pedal edema Neurological exam: PRESENT: alert, awake, oriented to person, oriented to place , oriented to time, oriented to situation, CN II-XII grossly intact. ABSENT: motor sensory deficit Psychiatric exam: PRESENT: appropriate affect, normal mood. ABSENT: homicidal ideation, suicidal ideation Skin exam: PRESENT: dry, intact, warm. ABSENT: cyanosis, rash Results Laboratory Results: 12/14/16 12:04 12/07/16 08:50 Assessment & Plan - Diagnosis (1) Hypertensive urgency Is this a current diagnosis for this admission?: YesPlan: Resolved with adjustment of medications (2) Tubulovillous adenoma of colon Is this a current diagnosis for this admission?: YesPlan: Post op day #5, management per surgery - Time Time Spent with patient: 25-34 minutes Critical Time spent with patient: 15-24 minutes Medications reviewed and adjusted accordingly: Yes Anticipated discharge: Home Within: within 24 hours
== END 2016-12-20 12:13 | disposition home or self-care (01) | DRG 331 ==
LOC: 4N 05:30 → INOR 05:30 → UNDOADMIN 05:30 → OROUT 05:30 → INOR 14:44 → OROUT 14:44 → 4N 14:44 → UNDODISIN 12-20 12:13 → OROUT 12-20 12:13 → EDSTATUS 12-23 07:30
PROVIDERS: ADMIT Surgery; ATTEND Surgery
PROC: 0DJD4ZZ Inspection of Lower Intestinal Tract, Percutaneous Endoscopic Approach (ICD-10-PCS; 2016-12-14)
PROC: 0DTG0ZZ Resection of Left Large Intestine, Open Approach (ICD-10-PCS; principal; 2016-12-14 07:30)
DX: D12.3 Benign neoplasm of transverse colon (principal); Z53.31 Laparoscopic surgical procedure converted to open procedure; I16.0 Hypertensive urgency; I71.4 Abdominal aortic aneurysm, without rupture; K21.9 Gastro-esophageal reflux disease without esophagitis; I10 Essential (primary) hypertension; E11.9 Type 2 diabetes mellitus without complications; E78.5 Hyperlipidemia, unspecified; N40.0 Benign prostatic hyperplasia without lower urinary tract symptoms; Z79.84 Long term (current) use of oral hypoglycemic drugs; Z79.899 Other long term (current) drug therapy; Z87.891 Personal history of nicotine dependence
CPT/HCPCS: 36415; 790; 80048; 80076; 82962; 85027; 86850; 86900; 86901; 88304; 88309; 93005; 93010; 94799; C9290; J0131; J0295; J0330; J1100; J1885; J2250; J2270; J2405; J2550; J2704; J2765; J3010; J3490

== ENCOUNTER 2017-05-04 06:24 | Day surgery (SDC) | payer MEDICARE, OTHER ==
[2017-05-04] MEDS: BESIFLOXACIN HCL 0.6% OPH SUSP 5 ML BOTTLE OS PRN ×4 (06:52→08:00)
[2017-05-04] MEDS: TROPICAMIDE 1% OPH SOLN 3 ML OS PRN ×3 (06:52→07:12)
[2017-05-04] MEDS: CYCLOPENTOLATE 0.2%/PHENYLEPHRINE 1% OPH SOLN 2 ML OS PRN ×3 (06:52→07:12)
[2017-05-04] MEDS: TETRACAINE HCL 0.5% OPH SOLN 2 ML OS PRN ×3 (06:53→07:33)
[2017-05-04] MEDS ORDERED: KETOROLAC TROMETHAMINE 0.45% 4 DROP/0.4 ML DROPERETTE OS PRN (07:00)
[2017-05-04] MEDS ORDERED: FENTANYL CITRATE INJ/PF 100 MCG/2 ML AMPUL ONE (07:04)
[2017-05-04] MEDS ORDERED: MIDAZOLAM 2 MG/2 ML INJ ONE (07:04)
[2017-05-04] MEDS ORDERED: EPINEPHRINE INJ/PF 1 MG/1 ML AMPULE ONE (07:12)
[2017-05-04] MEDS ORDERED: LIDOCAINE 1% INJ-PF (10 MG/ML) 30 ML SDV ONE (07:12)
[2017-05-04] MEDS ORDERED: CHONDR SU A NA/HYALUR INTRAOC KIT (SURGICARE) ONE (07:13)
--- NOTE | 2017-05-04 19:58 | [facility] DISCHARGE SUMMARY E ---
[facility] Discharge Summary NAME: COLLEEN GROVER AGE: 71Y ADMITTED: 05/04/2017 DISCHARGED: 05/04/2017 HISTORY OF PRESENT ILLNESS AND HOSPITAL COURSE: This is a 71-year-old male who underwent cataract extraction of the left eye. DIAGNOSIS: Cataract, left eye. HOSPITAL COURSE: He underwent surgery because he was having difficulty seeing small print. DISCHARGE INSTRUCTIONS: 1. He should be on a regular diet. 2. No bending at the waist and no heavy lifting. 3. He should use his Besivance, Ilevro, and Durezol at 3 p.m. and 8 p.m. and sleep with a rigid shield. 4. I will see him for his one-day postoperative tomorrow. DICTATING PHYSICIAN: ANIL HIGGINS M.D. [id number] [id number] PHY#: [id number] ID: [id number] JOB#: [id number] ACCT: [id number] cc:ANIL HIGGINS M.D. >
--- NOTE | 2017-05-04 19:58 | [facility] OPERATIVE REPORT E ---
[facility] Operative Report NAME: COLLEEN GROVER AGE: 71Y DATE OF SURGERY: 05/04/2017 ROOM: PREOPERATIVE DIAGNOSIS: Cataract, left eye. POSTOPERATIVE DIAGNOSIS: Cataract, left eye. OPERATION: Cataract extraction with intraocular lens implant of the left eye. SURGEON: ANIL HIGGINS M.D. ANESTHESIA: Topical. PROCEDURE: After obtaining appropriate consent, the patient's left eye was prepped and draped in sterile fashion as well as the surgeon in a sterile manner and cataract surgery was started. First a paracentesis blade was used to make a small side-port incision. Viscoelastic was used to inflate the anterior chamber. Next a 2.4 mm incision was made with the paracentesis blade. A continuous capsulorrhexis incision was made using a cystotome and Utrata forceps. Following this hydrodissection was carried out to make the lens fully loose and mobile and it was rotated 90 degrees. Following this, a cqxjbb-noy-ydhgong technique was used to phacoemulsify the lens with a CDE of 7.97. The remaining cortex was removed with irrigation/aspiration. Provisc was instilled into the capsular bag to inflate the bag. A SN60WF, 14.5 diopter lens was placed. The remaining viscoelastic material was removed with irrigation/aspiration. Following this, a 10-0 nylon suture was used to close the incision and it was found to be watertight. Vigamox was instilled in the eye and a protective shield was placed over the eye. The patient returned to the postoperative recovery in stable condition. DICTATING PHYSICIAN: ANIL HIGGINS M.D. [id number] [id number] PHY#: [id number] ID: [id number] JOB#: [id number] ACCT: [id number] cc:ANIL HIGGINS M.D. >
== END 2017-05-04 08:47 | disposition home or self-care (01) ==
LOC: SC 06:24
PROVIDERS: ATTEND Internal Medicine
PROC: 08RK3JZ Replacement of Left Lens with Synthetic Substitute, Percutaneous Approach (ICD-10-PCS; principal; 2017-05-04 07:30)
DX: H25.812 Combined forms of age-related cataract, left eye (principal); E11.9 Type 2 diabetes mellitus without complications; I10 Essential (primary) hypertension; M19.90 Unspecified osteoarthritis, unspecified site; Z87.891 Personal history of nicotine dependence; Z79.82 Long term (current) use of aspirin; Z79.899 Other long term (current) drug therapy; Z79.84 Long term (current) use of oral hypoglycemic drugs
CPT/HCPCS: 66984; 82962; V2632; J2250; J3490 ×2; J0171; J3010; 142

== ENCOUNTER 2017-07-19 06:36 | Emergency (ER) | payer MEDICARE, OTHER ==
--- NOTE | 2017-07-19 08:18 | ER Document Report ---
ED General - General Chief Complaint: Back Pain Stated Complaint: BACK PAIN Time Seen by Provider: 07/19/17 08:09 Mode of Arrival: Wheelchair Information source: Patient, Relative TRAVEL OUTSIDE OF THE [place] IN LAST 30 DAYS: No - HPI Notes: 72-year-old male with a history of hypertension, type 2 diabetes BPH presents today for complaints of sudden onset lower back pain that radiates to lower abdomen and testicles approximately 4 hours ago that woke him out of sleep. Reports pain was 7 out of 10, throbbing achy. Denies any trauma to lower abdomen. Reports pain right greater than left to lower back. Has not tried any btwx-cpi-xdcerjx medications. Denies any chest pain, shortness of breath, lightheadedness, dizziness, blurred vision, double vision, change in speech, numbness or tingling down bilateral upper and lower extremities, weakness down bilateral upper and lower extremities. Denies any nausea vomiting diarrhea. Patient denies any issues with bowel or bladder dysfunction or, saddle anesthesia. Patient did have a bowel movement while in the emergency room, states that this did greatly relieve his pain that brought him in but he still is feeling a little bit of testicular pain. Denies any rashes. Denies any fevers or chills. Patient states he still capable of getting erection. Denies any penile discharge or pain. Patient has a scheduled cardiac cath tomorrow in with Dr. Jose due to an episode of chest pain approximately 2 weeks ago , was seen by costumer on Monday who felt that a heart cath would be more appropriate in yield more information since patient did have a stress test done in April 2015 after he was seen at this ER for chest pain, stress test was negative for any significant findings, patient was followed by Dr. Brower, costumer, affiliated with [facility]. 0 . - Related Data Allergies/Adverse Reactions: No Known Allergies Allergy (Verified 04/27/17 14:05) Past Medical History - General Information source: Patient, Relative - Social History Smoking Status: Never Smoker Chew tobacco use (# tins/day): No Frequency of alcohol use: None Drug Abuse: None Family History: Reviewed & Not Pertinent, CAD, DM, Hypertension Patient has suicidal ideation: No Patient has homicidal ideation: No - Past Medical History Cardiac Medical History: Reports: Hx Hypertension Denies: Hx Atrial Fibrillation, Hx Congestive Heart Failure, Hx Coronary Artery Disease, Hx Heart Attack, Hx Hypercholesterolemia, Hx Peripheral Vascular Disease, Hx Pulmonary Embolism, Hx Heart Murmur Pulmonary Medical History: Denies: Hx Asthma, Hx Bronchitis, Hx COPD, Hx Pneumonia, Hx Respiratory Failure, Hx Sleep Apnea, Hx Tuberculosis Neurological Medical History: Denies: Hx Cerebrovascular Accident, Hx Seizures Endocrine Medical History: Reports: Hx Diabetes Mellitus Type 2. Denies: Hx Graves' Disease, Hx Hyperthyroidism, Hx Hypothyroidism Renal/ Medical History: Denies: Hx Benign Prostatic Hyperplasia, Hx End Stage Renal Disease, Hx Kidney Stones, Hx Peritoneal Dialysis Malignancy Medical History: Denies Hx Lung Cancer GI Medical History: Reports: Hx Gastroesophageal Reflux Disease. Denies: Hx Crohn's Disease, Hx Hepatitis, Hx Hiatal Hernia, Hx Irritable Bowel, Hx Liver Failure, Hx Pancreatitis, Hx Ulcer Musculoskeltal Medical History: Reports Hx Arthritis, Denies Hx Fibromyalgia, Denies Hx Multiple Sclerosis, Denies Hx Muscular Dystrophy Psychiatric Medical History: Denies: Hx Dementia Traumatic Medical History: Denies: Hx Fractures Infectious Medical History: Denies: Hx Hepatitis Past Surgical History: Reports: Hx Tonsillectomy. Denies: Hx Appendectomy, Hx Bowel Surgery, Hx Cholecystectomy, Hx Colostomy, Hx Coronary Artery Bypass Graft , Hx Gastric Bypass Surgery, Hx Herniorrhaphy, Hx Open Heart Surgery, Hx Pacemaker - Immunizations Hx Diphtheria, Pertussis, Tetanus Vaccination: No Hx Pneumococcal Vaccination: 03/19/14 Review of Systems - Review of Systems Constitutional: No symptoms reported EENT: No symptoms reported Cardiovascular: No symptoms reported Respiratory: No symptoms reported Gastrointestinal: See HPI Genitourinary: No symptoms reported Male Genitourinary: See HPI Musculoskeletal: No symptoms reported Skin: No symptoms reported Hematologic/Lymphatic: No symptoms reported Neurological/Psychological: No symptoms reported Physical Exam - Vital signs Vitals: Pulse Resp BP Pulse Ox 71 22 H 231/97 H 96 07/19/17 06:36 07/19/17 06:36 07/19/17 06:36 07/19/17 06:36 - Notes Notes: repeat blood pressure done at 0750 was 144/81 - General General appearance: Appears well In distress: None - Respiratory Respiratory status: No respiratory distress Chest status: Nontender Breath sounds: Normal Chest palpation: Normal - Cardiovascular Rhythm: Regular Heart sounds: Normal auscultation Murmur: No Normal capillary refill: Yes - Abdominal Inspection: Normal Distension: No distension Bowel sounds: Normal Tenderness: Nontender. No: McBurney's point, Ko's sign Organomegaly: No organomegaly. No: Hepatomegaly, Splenomegaly - Genitourinary Inspection: Normal Tenderness: Nontender Scrotum: Normal - No noted inguinal or femoral hernia bilaterally. Femoral pulses +2 bilaterally and equally. - Back Back: CVA tenderness - +right and left CVA tenderness - Extremities General upper extremity: Normal inspection, Nontender, Normal strength, Normal temperature General lower extremity: Normal inspection, Nontender, Normal strength, Normal temperature - Neurological Neuro grossly intact: Yes Cognition: Normal Orientation: AAOx4 [place] Coma Scale Verbal: Oriented [place]anchito Coma Scale Motor: Obeys Commands Speech: Normal Cranial nerves: Normal Cerebellar coordination: Normal Motor strength normal: LUE, RUE, LLE, RLE Additional motor exam normals: Equal net developer programmer Biceps - Reflex grade: 2 = Normal Triceps - Reflex grade: 2 = Normal Brachioradialis - Reflex grade: 2 = Normal Knee - Reflex grade: 2 = Normal Ankle - Reflex grade: 2 = Normal - Psychological Associated symptoms: Normal affect, Normal mood - Skin Skin Temperature: Warm Skin Moisture: Dry Skin Color: Normal Course - Re-evaluation Re-evalutation: Laboratory findings unremarkable. CT abdomen pelvis shows that patient does have a left-sided 6mm nnephrolithiasis proximal to UVC. His renal function is normal and UTI. Advised patient to take prescribed antibiotic, antiemetic, Flomax as directed as well as Percocet as needed for pain. Follow-up with urologist outpatient, name and number given to patient. Patient and made aware that he does have a abdominal aortic aneurysm that is approximately 5 cm, radiologist stated that aneurysm appeared slightly enlarged, however is not sure if this is due to artifact. Patient to follow-up with Dr. Ramesh regarding this matter. Patient advised to return to emergency room symptoms become worse. Discussed with cardiac company laborer in prior to taking Percocet due to having an already scheduled heart catheterization tomorrow. Patient and verbalized understanding of all these instructions, plan of care and they agreed with plan of care. Patient was discharged home. - Vital Signs Vital signs: Temp Pulse Resp BP Pulse Ox 71 22 H 142/81 H 96 07/19/17 06:36 07/19/17 06:36 07/19/17 12:01 07/19/17 06:36 - Laboratory Result Diagrams: 07/19/17 07:48 07/19/17 07:48 Laboratory results interpreted by me: 07/19/17 07/19/17 07/19/17 07:48 07:48 08:24 Plt Count 122 L Chloride 108 H BUN 26 H Glucose 161 H Urine Blood LARGE H Urine Ascorbic Acid 40 H Discharge - Discharge Clinical Impression: Left nephrolithiasis Condition: Good Disposition: HOME, SELF-CARE Additional Instructions: Kidney Stone You are passing or have passed a kidney stone. These stones are usually due to increased calcium or uric acid concentrations in your urine. Stones within the kidney itself are not painful. The pain occurs as the stone leaves the kidney to pass down the long tube, called the ureter, leading to the bladder. If the stone is small, it will usually pass by itself. Most patients can pass the stone at home. You will usually receive medications for pain, nausea or vomiting, and sometimes a medication to assist in passing the kidney stone. However, if the pain is very severe or if vomiting prevents you from taking oral pain medications, you may need to return for further treatment. Drink three or four quarts of fluids per day. You will be given pain medication (if needed) and urine strainers. Strain all your urine to see if the stone passes. If your doctor has asked you to bring the stone in for analysis, return with the stone once it has passed. Return if pain or vomiting become severe, if you develop a high fever, if you are unable to pass your urine, or if other unusual symptoms occur. Take oral antibiotic, antiemetic, Flomax and pain medication as needed. Strain urine with every urination. Follow up with urologist, Dr. Talisha Sparrow with [facility] within the next 3 days [address] well as Dr. Ramesh, PCP for kidney stone as well as CT CT findings of abdominal aortic aneurysm. Consult with with [place] prior to taking any pain medication as you are can have a cath reservation procedure done tomorrow. Return immediately for any new or worsening symptoms. Follow up with primary care provider, call tomorrow to make followup appointment. Prescriptions: Nitrofurantoin Monohyd/M-Cryst [Macrobid 100 mg Capsule] 1 tab PO BID #20 capsule Ondansetron [Zofran Odt 4 mg Tablet] 1 - 2 tab PO Q4H PRN #15 tab.rapdis PRN Reason: For Nausea/Vomiting Tamsulosin HCl [Flomax] 0.4 mg PO DAILY #30 cap.er.24h Referrals: TALISHA SPARROW MD [EMERITUS] - Follow up in 3-5 days JACEK RAMESH MD [COMMUNITY BASED STAFF] - Follow up in 3-5 days
[2017-07-19 08:21] LABS: ABSOLUTE LYMPHOCYTES (AUTO) 1.3 10^3/uL (0.5-4.7); ABSOLUTE MONOCYTES (AUTO) 0.5 10^3/uL (0.1-1.4); ABSOLUTE NEUT (AUTO) 6.3 10^3/uL (1.7-8.2); BASOPHILS % (AUTO) 0.5 % (0-2); EOSINOPHILS % (AUTO) 0.5 % (0-6); HEMATOCRIT 41.9 % (37.9-51.0); HEMOGLOBIN 14.5 g/dL (13.5-17.0); LYMPHOCYTES % (AUTO) 16.3 % (13-45); MEAN CORPUSCULAR HEMOGLOBIN 32.9 pg (27.0-33.4); MEAN CORPUSCULAR HGB CONC 34.5 g/dL (32.0-36.0); MEAN CORPUSCULAR VOLUME 95 fl (80-97); MONOCYTES % (AUTO) 5.9 % (3-13); PLATELET COUNT 122 10^3/uL (150-450); RED BLOOD COUNT 4.39 10^6/uL (4.35-5.55); RED CELL DISTRIBUTION WIDTH 13.8 % (11.5-14.0); SEGMENTED NEUTROPHILS % (AUTO) 76.8 % (42-78); TOTAL CELLS COUNTED % (AUTO) 100 %; WHITE BLOOD COUNT 8.1 10^3/uL (4.0-10.5)
[2017-07-19 08:30] LABS: ALANINE AMINOTRANSFERASE 36 U/L (21-72); ALBUMIN 4.2 g/dL (3.5-5.0); ALKALINE PHOSPHATASE 47 U/L (38-126); ANION GAP 9 (5-19); ASPARTATE AMINO TRANSFERASE 30 U/L (17-59); BILIRUBIN,DIRECT 0.4 mg/dL (0.0-0.4); BILIRUBIN,TOTAL 0.5 mg/dL (0.2-1.3); BLOOD UREA NITROGEN 26 mg/dL (7-20); CARBON DIOXIDE 26 mmol/L (22-30); CHLORIDE 108 mmol/L (98-107); GLUCOSE 161 mg/dL (75-110); LIPASE 91.7 U/L (23-300); POTASSIUM 4.4 mmol/L (3.6-5.0); SODIUM 143.2 mmol/L (137-145); TOTAL PROTEIN 6.9 g/dL (6.3-8.2)
[2017-07-19] MEDS ORDERED: NORMAL SALINE 1000 ML 1,000 ML IV PRN ×2 (08:32→08:34)
[2017-07-19 08:45] LABS: APPEARANCE,URINE SLIGHTLY-CLOUDY; BILIRUBIN,URINE NEGATIVE (NEGATIVE); COLOR,URINE YELLOW; GLUCOSE, URINE NEGATIVE (NEGATIVE); KETONES,URINE NEGATIVE (NEGATIVE); LEUKOCYTE ESTERASE,URINE NEGATIVE (NEGATIVE); NITRITE,URINE NEGATIVE (NEGATIVE); PROTEIN,URINE NEGATIVE (NEGATIVE); URINE SPECIFIC GRAVITY 1.013; UROBILINOGEN,URINE NEGATIVE mg/dL (<2.0)
--- NOTE | 2017-07-19 10:26 | RADIOLOGY REPORT (SQ) ---
EXAM DESCRIPTION: CT ABD/PELVIS WITH IV ONLY COMPLETED DATE/TIME: 07/19/2017 10:06 am REASON FOR STUDY: sudden onset LBP rad to lwr abd, no hx of BP COMPARISON: 11/08/2016. TECHNIQUE: CT scan of the abdomen and pelvis performed using helical scanning technique with dynamic intravenous contrast injection. No oral contrast. Images reviewed with lung, soft tissue, and bone windows. Reconstructed coronal and sagittal MPR images reviewed. Delayed images for evaluation of the urinary system also acquired. All images stored on PACS. All CT scanners at this facility use dose modulation, iterative reconstruction, and/or weight based d osing when appropriate to reduce radiation dose to as low as reasonably achievable (ALARA). [facility]: Dose Right [facility]: CareDose [facility]: Dose Right [facility]: Teradose 4D [facility]: PlotWatt CONTRAST TYPE AND DOSE: contrast/concentration: Isovue 370.00 mg/ml; Total Contrast Delivered: 96.0 ml; Total Saline Delivered: 53.1 ml RENAL FUNCTION: 0.87 creatinine RADIATION DOSE: CT Rad equipment meets quality standard of care and radiation dose reduction techniq ues were employed. CTDIvol: 13.1 - 16.4 mGy. DLP: 1644 mGy-cm.. LIMITATIONS: None. FINDINGS: LOWER CHEST: Pronounced basilar bullous changes on the right. LIVER: Fatty parenchyma. SPLEEN: Normal size. No focal lesions. PANCREAS: No masses. No significant calcifications. No adjacent inflammation or peripancreatic fluid collections. Pancreatic duct not dilated. GALLBLADDER: No identified stones by CT criteria. No inflammatory changes to suggest cholecystitis. ADRENAL GLANDS: No significant masses or asymmetry. RIGHT KIDNEY AND URETER: Cysts. No solid mass or obstructive changes. No stones. LEFT KIDNEY AND URETER: Cysts. Nonobstructing stone in the lower pole. Mild hydronephrosis otherwis e. Left ureter dilated throughout. This is to the level of a stone just proximal to the UVJ which m easures 6 mm. Elongated configuration makes assessment of Hounsfield units difficult, however. AORTA AND VESSELS: 5 cm infrarenal abdominal aortic aneurysm, similar to perhaps slightly more promin ent compared to last year's study. Differences could be due to differences in technique and variabil ity in measurement. Thrombus in the aneurysm sac. No evidence of leak, however. Patent major arter ial branches. No venous clot. RETROPERITONEUM: No retroperitoneal adenopathy, hemorrhage or masses. BOWEL AND PERITONEAL CAVITY: Sigmoid diverticulosis. No suggestion of active inflammatory change cur rently although there do appear to be some areas of mild fat necrosis, left periumbilical and left up per quadrant. APPENDIX: Normal. PELVIS: No mass. No free fluid. Normal bladder. ABDOMINAL WALL: Mild umbilical hernia contains a knuckle of small bowel. No evidence of obstruction. Abdominal wall otherwise intact. BONES: No significant or acute findings. OTHER: No other significant finding. IMPRESSION: 1. Patient's acute presentation is likely related to ureteral stone just proximal to th e left UVJ. There is mild hydronephrosis. 2. Infrarenal abdominal aortic aneurysm, stable to perha ps very slightly larger. Now measuring 5 cm. 3. Other findings as above, not felt to be acute. TECHNICAL DOCUMENTATION: JOB ID: [id number] Quality ID # [id number]: Final reports with documentation of one or more dose reduction techniques (e.g., Au tomated exposure control, adjustment of the mA and/or kV according to patient size, use of iterative reconstruction technique) 2010 [employer]- All Rights Reserved
--- NOTE | 2017-07-19 10:30 | RADIOLOGY REPORT (SQ) ---
EXAM DESCRIPTION: U/S SCROTUM W/DOPPLER COMPLETED DATE/TIME: 07/19/2017 9:57 am REASON FOR STUDY: R>L testical pain, rad from back COMPARISON: None. TECHNIQUE: Static and realtime javier scale imaging of the scrotum and testes. Selected color Doppler and spectral images recorded to document blood flow. LIMITATIONS: None. FINDINGS: RIGHT: TESTICLE: The right testicle demonstrates normal echotexture measuring 4 x 2.3 x 2.4 cm. Normal Dopp ler flow noted. . EPIDIDYMIS: The right epididymis is visualized measuring 1.8 x 2.7 x 0.9 cm. Normal Doppler flow not ed. HYDROCELE OR VARICOCELE: Yes HERNIA OR EXTRA-TESTICULAR MASS: No. LEFT: TESTICLE: The left testicle demonstrates normal echotexture measuring 3.8 x 2.4 x 2.1 cm. Normal Dop pler flow noted. EPIDIDYMIS: The epididymis is normal measuring 0.9 x 0.8 x 0.7 cm. Normal Doppler flow noted. HYDROCELE OR VARICOCELE: No. HERNIA OR EXTRA-TESTICULAR MASS: No. OTHER: No other significant finding. IMPRESSION: Normal testicular ultrasound. Small right hydrocele. TECHNICAL DOCUMENTATION: JOB ID: [id number] SC-[id number] 2010 [employer]- All Rights Reserved
[2017-07-19] MEDS ORDERED: HYDROCODONE/ACETAMINOPHEN 5-325 MG (6 TAB/ER DISP) PO PRN (11:52)
[2017-07-19] MEDS ORDERED: TAMSULOSIN HCL 0.4 MG CAP.SR.24H PO ONE (11:55)
[2017-07-19 13:08] VITALS: BP 142/81
== END 2017-07-19 13:08 | disposition home or self-care (01) ==
LOC: ER 06:36
DX: N13.2 Hydronephrosis with renal and ureteral calculous obstruction (principal); N39.0 Urinary tract infection, site not specified; I71.4 Abdominal aortic aneurysm, without rupture; M54.5 Low back pain; E11.9 Type 2 diabetes mellitus without complications; I10 Essential (primary) hypertension
CPT/HCPCS: 99284; 96360; 36415; 83690; 85025; 80053; 81001; 76870; 93976; 74177; A9270 ×2; J7030

== ENCOUNTER → 2017-09-04 | Outpatient (CLI) | payer MEDICARE, OTHER ==
--- NOTE | 2017-09-04 15:58 | RADIOLOGY REPORT (SQ) ---
EXAM DESCRIPTION: U/S RETROPERITON (RENAL/AORTA) COMPLETED DATE/TIME: 09/04/2017 2:54 pm REASON FOR STUDY: KIDNEY STONES (N20.0) N20.0 CALCULUS OF KIDNEY COMPARISON: CT abdomen and pelvis examination dated 07/19/2017. TECHNIQUE: Dynamic and static grayscale images acquired of the kidneys and bladder and recorded on P ACS. Additional selected color Doppler and spectral images recorded. LIMITATIONS: None. FINDINGS: RIGHT KIDNEY: The right kidney measures 10.8 cm in length, normal size. Multiple cysts ar e identified. One of the largest in the upper-mid pole measures 4.3 x 3.4 x 4.4 cm. In the lower p ole, one of the largest measures 5.5 x 4.0 x 3.8 cm. No hydronephrosis. LEFT KIDNEY: The left kidney measures 11.1 cm in length, normal size. Multiple cysts are identified . One of the largest in the upper--mid pole measures 4.3 x 3.5 x 3.1 cm. In the upper pole, a 2.0 x 2.0 x 1.7 cm cyst. In the lower pole, a 3.6 x 3.4 x 2.8 cm cyst. A nonobstructing 8.1 mm calculus in the lower pole. No hydronephrosis. BLADDER: No masses. OTHER FINDINGS: A 4.5 cm abdominal aortic aneurysm; this is a known finding. IMPRESSION: 1 Multiple bilateral renal cysts. These findings correlate with the CT abdomen and pelv is examination dated 07/19/2017. 2. Non-obstructing left renal calculus. No evidence of hydronephrosis involving the right kidney. 3 Incidentally, a 4.5 cm abdominal aortic aneurysm, known finding. TECHNICAL DOCUMENTATION: JOB ID: [id number] [employer]- All Rights Reserved Reading location - IP/workstation name: [email or web address]
--- NOTE | 2017-09-04 16:00 | RADIOLOGY REPORT (SQ) ---
EXAM DESCRIPTION: KUB/ABDOMEN (SINGLE VIEW) COMPLETED DATE/TIME: 09/04/2017 2:28 pm REASON FOR STUDY: KIDNEY STONES (N20.0), CALCULUS OF URETER (N20.1) N20.0 CALCULUS OF KIDNEY COMPARISON: Abdominal CT scan dated 07/19/2017 NUMBER OF VIEWS: One view. TECHNIQUE: Supine radiographic image of the abdomen acquired. LIMITATIONS: None. FINDINGS: BOWEL GAS PATTERN: Normal bowel gas pattern. No dilated loops. CALCIFICATIONS: The previously described left renal calculus in calculus at the level of the uteroves ical junction on the left are not identified on the basis of the plain film. SOFT TISSUES: No gross mass or suggestion of organomegaly. HARDWARE: None in the abdomen. BONES: No acute fracture. No worrisome bone lesions. OTHER: No other significant finding. IMPRESSION: NO RADIOGRAPHIC EVIDENCE FOR ACUTE ABDOMINAL DISEASE. TECHNICAL DOCUMENTATION: JOB ID: [id number] [employer]- All Rights Reserved Reading location - IP/workstation name: [email or web address]
== END ==
LOC: RAD 13:32
PROVIDERS: ATTEND Urology
DX: N20.0 Calculus of kidney (principal); I71.4 Abdominal aortic aneurysm, without rupture
CPT/HCPCS: 74018; 76770

== ENCOUNTER 2017-12-28 08:14 | Day surgery (SDC) | payer MEDICARE, OTHER ==
[2017-12-28] MEDS ORDERED: DIPHENHYDRAMINE HCL 50 MG/ML VIAL ONE (08:45)
[2017-12-28] MEDS ORDERED: ONDANSETRON HCL INJ/PF 4 MG/2 ML SDV ONE (08:45)
[2017-12-28] MEDS ORDERED: NALOXONE HCL INJ/PF 0.4 MG/1 ML SDV ONE (08:45)
[2017-12-28] MEDS ORDERED: FENTANYL CITRATE INJ/PF 100 MCG/2 ML AMPUL ONE (08:46)
[2017-12-28] MEDS ORDERED: EPINEPHRINE INJ 1 MG/10 ML DISP.SYRIN ONE (08:46)
[2017-12-28] MEDS ORDERED: GLUCAGON,HUMAN RECOMB 1 MG INJ ONE (08:46)
[2017-12-28] MEDS ORDERED: FLUMAZENIL INJ 0.5 MG/5 ML VIAL ONE (08:46)
[2017-12-28] MEDS ORDERED: MIDAZOLAM 2 MG/2 ML INJ ONE (08:46)
[2017-12-28] MEDS: MIDAZOLAM 2 MG/2 ML INJ ONE ×2 (09:50→09:54)
--- NOTE | 2017-12-28 10:31 | Discharge Summary ---
Discharge Summary (SDC) - Discharge Final Diagnosis: 1. Colon and rectal polyps 2. History of tubulovillous adenoma status post segmental colectomy Date of Surgery: 12/28/17 Discharge Date: 12/28/17 Condition: Good Treatment or Instructions: [address] [address] POST ENDOSCOPY DISCHARGE INSTRUCTIONS 1. Diet: Start clear liquids that a regular diet as tolerated. 2. Resume all preoperative medications. All oral anticoagulants and aspirins can be resumed 24 hours after procedure. 3. If a polypectomy was performed some bleeding per rectum may occur. This should stop within 3 days. If not, please contact the office. 4. If you had a colonoscopy you may experience some bloating and delayed return of normal bowel function for several days, your regular bowel movement pattern should resume within a week. 5. Please contact [facility] at to make an appointment with Dr. Petersen for 1 to 3 weeks following procedure. 6. If you have any questions or concerns regarding your care,treatment plan or follow up, please contact our office. 7. Per clinical guidelines we recommend you undergo a repeat colonoscopy in 3 years. Referrals: JACEK CONN MD [Primary Care Provider] - Discharge Diet: As Tolerated Discharge Activity: Activity As Tolerated Home Care Assistance: None Needed Report the Following to Your Physician Immediately: Shortness of Breath, Increase in Pain, Fever over 101 Degrees
--- NOTE | 2017-12-28 10:36 | Operative Report ---
Operative Report DATE OF SURGERY: 12/28/17 PREOPERATIVE DIAGNOSIS: 1. History of segmental colectomy for large tubulovillous adenoma. 2. Sigmoid diverticulosis POSTOPERATIVE DIAGNOSIS: Same with solitary polyp colonic anastomosis; multiple rectal polyps OPERATION: 1. Total colonoscopy to cecum with photodocumentation. 2. Transverse colon polypectomy with hot snare device. 3. Cold polypectomy of multiple small rectal polyps SURGEON: [place]OR[place] SHER ANESTHESIA: Moderate Sedation TISSUE REMOVED OR ALTERED: Polyps COMPLICATIONS: None ESTIMATED BLOOD LOSS: Scant INTRAOPERATIVE FINDINGS: See below PROCEDURE: Obtaining informed consent the patient was taken from the preoperative holding area to the main endoscopy suite where monitoring devices were attached to the patient. Plan and surgical timeout were conducted The patient was placed in the left lateral decubitus position with knees to chest. A perianal examination was performed. There was no visible or palpable anorectal pathology. Sphincter tone was felt to be normal. Small internal hemorrhoids noted The flexible adult colonoscope was advanced through the anal rectal canal, all the way to the cecum. Visualization of the ileocecal valve, the appendiceal orifice and transillumination of the anterior abdominal wall confirmed cecal intubation this was an excellent study on the well-prepped bowel. The colonoscope was withdrawn slowly and methodically checked and the mucosa carefully. The anastomosis of the colon between the transverse colon and the descending colon was appreciated. Photos were taken. There was a random small pedunculated polyp approximately 4 mm in height with was photographed and removed with a hot snare device; specimen retrieved and sent as chronic polyp. Bleeding was minimal There was no evidence of tumor, stricture, bleeding;. There there were scattered sigmoid diverticuloses. The scope was slowly withdrawn through the anal rectal canal. In the mid to upper rectum were several small hyperplastic polyps sessile, photographed and removed with the cold forceps device. Bleeding minimal. Complete visualization of the rectum was achieved with photodocumentation. Small internal hemorrhoids observed. The scope was withdrawn to the patient's anus. The patient tolerated the procedure well and was taken to the recovery area in stable condition. Per surveillance guidelines, patient be appropriate candidate for follow-up colonoscopy in 3 years, or sooner if symptoms develop.
[2017-12-28 11:36] VITALS: BP 122/71
== END 2017-12-28 11:25 | disposition home or self-care (01) ==
LOC: END 08:14
PROVIDERS: ATTEND Surgery
PROC: 0DBP8ZX Excision of Rectum, Via Natural or Artificial Opening Endoscopic, Diagnostic (ICD-10-PCS; principal; 2017-12-28 09:00)
PROC: 0DBL8ZX Excision of Transverse Colon, Via Natural or Artificial Opening Endoscopic, Diagnostic (ICD-10-PCS; 2017-12-28 09:00)
DX: K63.5 Polyp of colon (principal); K62.1 Rectal polyp; K64.8 Other hemorrhoids; Z86.010 Personal history of colon polyps
CPT/HCPCS: 45380; 45385; 82962; 88305 ×2; J2250; J3010; J0171; J1200; J1610; J2310; J2405; J3490

== ENCOUNTER 2019-03-27 04:31 | Observation (INO) | payer MEDICARE, OTHER ==
[2019-03-27] MEDS ORDERED: ASPIRIN 81 MG TABLET, CHEWABLE PO ONE (05:03)
--- NOTE | 2019-03-27 05:10 | ER Document Report ---
ED Medical Screen (RME) - General Chief Complaint: Chest Pain > 30 Stated Complaint: CHEST PAINS Time Seen by Provider: 03/27/19 04:59 Primary Care Provider: JACEK CONN MD [Primary Care Provider] - Follow up as needed Notes: 73-year-old male chief complaint of chest pain intermittently since yesterday. He took nitroglycerin yesterday and this evening, chest pain responded both times. He is currently chest pain-free. He has never had an GA but he has been treated for angina for years. He had a negative catheterization and a negative stress test within the past year reportedly. Follows with Dr. Ding. No current complaints or complaints otherwise. TRAVEL OUTSIDE OF THE [place] IN LAST 30 DAYS: No - Related Data Allergies/Adverse Reactions: No Known Allergies Allergy (Verified 03/27/19 05:00) Past Medical History - Social History Chew tobacco use (# tins/day): No Frequency of alcohol use: Rare - Past Medical History Cardiac Medical History: Reports: Hx Hypertension Denies: Hx Atrial Fibrillation, Hx Congestive Heart Failure, Hx Coronary Artery Disease, Hx Heart Attack, Hx Hypercholesterolemia, Hx Peripheral Vascular Disease, Hx Pulmonary Embolism, Hx Heart Murmur Pulmonary Medical History: Denies: Hx Asthma, Hx Bronchitis, Hx COPD, Hx Pneumonia, Hx Respiratory Failure, Hx Sleep Apnea, Hx Tuberculosis Neurological Medical History: Denies: Hx Cerebrovascular Accident, Hx Seizures, Hx Parkinson's Disease Endocrine Medical History: Reports: Hx Diabetes Mellitus Type 2. Denies: Hx Graves' Disease, Hx Hyperthyroidism, Hx Hypothyroidism Renal/ Medical History: Denies: Hx Benign Prostatic Hyperplasia, Hx End Stage Renal Disease, Hx Kidney Stones, Hx Peritoneal Dialysis Malignancy Medical History: Denies Hx Lung Cancer GI Medical History: Reports: Hx Gastroesophageal Reflux Disease. Denies: Hx Crohn's Disease, Hx Hepatitis, Hx Hiatal Hernia, Hx Irritable Bowel, Hx Liver Failure, Hx Pancreatitis, Hx Ulcer Musculoskeltal Medical History: Reports Hx Arthritis, Denies Hx Fibromyalgia, Denies Hx Multiple Sclerosis, Denies Hx Muscular Dystrophy, Denies Hx Systemic Lupus Erythematosus Psychiatric Medical History: Denies: Hx Dementia Traumatic Medical History: Denies: Hx Fractures Infectious Medical History: Denies: Hx Hepatitis Past Surgical History: Reports: Hx Tonsillectomy. Denies: Hx Appendectomy, Hx Bowel Surgery, Hx Cholecystectomy, Hx Colostomy, Hx Coronary Artery Bypass Graft, Hx Gastric Bypass Surgery, Hx Herniorrhaphy, Hx Open Heart Surgery, Hx Pacemaker - Immunizations Hx Diphtheria, Pertussis, Tetanus Vaccination: No Physical Exam - Vital signs Vitals: Temp Pulse Resp BP Pulse Ox 97.7 F 76 16 147/87 H 97 03/27/19 04:48 03/27/19 04:48 03/27/19 04:48 03/27/19 04:48 03/27/19 04:48 - Respiratory Respiratory status: No respiratory distress Breath sounds: Normal - Cardiovascular Rhythm: Regular, Extrasystoles. No: Tachycardia Heart sounds: Normal auscultation, S1 appreciated, S2 appreciated Course - Re-evaluation Re-evalutation: I have greeted and performed a rapid initial assessment of this patient. A comprehensive ED assessment and evaluation of the patient, analysis of test results and completion of the medical decision making process will be conducted by additional ED providers. - Vital Signs Vital signs: Temp Pulse Resp BP Pulse Ox 97.7 F 76 16 147/87 H 97 03/27/19 04:48 03/27/19 04:48 03/27/19 04:48 03/27/19 04:48 03/27/19 04:48 Doctor's Discharge - Discharge Referrals: JACEK CONN MD [Primary Care Provider] - Follow up as needed
[2019-03-27 05:29] LABS: ABSOLUTE EOSINOPHILS # (AUTO) 0.1 10^3/uL (0.0-0.6); ABSOLUTE LYMPHOCYTES (AUTO) 2.3 10^3/uL (0.5-4.7); ABSOLUTE MONOCYTES (AUTO) 0.7 10^3/uL (0.1-1.4); ABSOLUTE NEUT (AUTO) 3.3 10^3/uL (1.7-8.2); BASOPHILS % (AUTO) 0.5 % (0-2); HEMATOCRIT 43.3 % (37.9-51.0); HEMOGLOBIN 14.7 g/dL (13.5-17.0); LYMPHOCYTES % (AUTO) 36.1 % (13-45); MEAN CORPUSCULAR HEMOGLOBIN 33.1 pg (27.0-33.4); MEAN CORPUSCULAR VOLUME 97 fl (80-97); MONOCYTES % (AUTO) 10.3 % (3-13); PLATELET COUNT 140 10^3/uL (150-450); RED BLOOD COUNT 4.44 10^6/uL (4.35-5.55); RED CELL DISTRIBUTION WIDTH 13.4 % (11.5-14.0); SEGMENTED NEUTROPHILS % (AUTO) 51.1 % (42-78); TOTAL CELLS COUNTED % (AUTO) 100 %; WHITE BLOOD COUNT 6.4 10^3/uL (4.0-10.5)
[2019-03-27 05:51] LABS: ALBUMIN 3.9 g/dL (3.5-5.0); ALKALINE PHOSPHATASE 49 U/L (38-126); ANION GAP 10 (5-19); ASPARTATE AMINO TRANSFERASE 30 U/L (17-59); BILIRUBIN,DIRECT 0.1 mg/dL (0.0-0.4); BILIRUBIN,TOTAL 0.4 mg/dL (0.2-1.3); BLOOD UREA NITROGEN 24 mg/dL (7-20); CALCIUM 9.2 mg/dL (8.4-10.2); CARBON DIOXIDE 24 mmol/L (22-30); CHLORIDE 108 mmol/L (98-107); CREATINE KINASE 179 U/L (55-170); GLUCOSE 113 mg/dL (75-110); POTASSIUM 4.5 mmol/L (3.6-5.0); TOTAL PROTEIN 6.6 g/dL (6.3-8.2)
--- NOTE | 2019-03-27 06:28 | RADIOLOGY REPORT (SQ) ---
EXAM DESCRIPTION: XR CHEST 1 VIEW COMPLETED DATE/TME: 03/27/2019 05:04 CLINICAL HISTORY: 73 years, Male, chest pain COMPARISON: 05/07/2015 NUMBER OF VIEWS: One TECHNIQUE: AP view of the chest LIMITATIONS: None. FINDINGS: The lungs are clear. The heart is normal in size. There is no pneumothorax or pleural effusion. The bones are unremarkable. IMPRESSION: No acute cardiopulmonary abnormality copyright 2010 [employer]- All Rights Reserved
--- NOTE | 2019-03-27 07:40 | EKG REPORT ---
SEVERITY:- ABNORMAL ECG - ATRIAL FIBRILLATION, V-RATE 56-99 LEFT ANTERIOR FASCICULAR BLOCK BORDERLINE T ABNORMALITIES, ANT-LAT LEADS CONSIDER OLD ANTEROSEPTAL [place]. : Confirmed by: Jeremy Hurtado MD 27-Mar-2019 07:39:57
--- NOTE | 2019-03-27 07:42 | EKG REPORT ---
SEVERITY:- ABNORMAL ECG - ATRIAL FIBRILLATION LEFT ANTERIOR FASCICULAR BLOCK NONSPECIFIC ST-T CHANGES- INFERIOR LEADS : Confirmed by: Jeremy Hurtado MD 27-Mar-2019 07:41:32
--- NOTE | 2019-03-27 08:55 | ER Document Report ---
Entered by BRIT MUNSON SCRIBE 03/27/19 0654 Acting as scribe for:KWASI FLORES MD ED Cardiac - General Chief Complaint: Chest Pain > 30 Stated Complaint: CHEST PAINS Time Seen by Provider: 03/27/19 04:59 Information source: Patient, [facility] Records Notes: Patient is a 73-year-old male who presents to the emergency department today with complaints of chest pain that has been going on for several days. Patient states that around 0230 this morning he woke up to go to the bathroom and get some water and noticed this chest pain again. Patient states he took a nitroglycerin and noticed that the pain transitioned from a "pain" to a "pressure" stating that it feels like someone is "pushing their fingers on my heart". Patient states the nitroglycerin took between 15-30 minutes to change the pain. Patient mentions that he had to take one nitroglycerin on March 22 and then took x2 on March 24. Patient states he takes the nitroglycerin if his chest has "pain" and the pain transitions from a pain to a pressure. Patient had a cardiac catheterization 2 years ago and a nuclear med stress test in August which was unremarkable. TRAVEL OUTSIDE OF THE [place] IN LAST 30 DAYS: No - Related Data Allergies/Adverse Reactions: No Known Allergies Allergy (Verified 03/27/19 05:00) Past Medical History - General Information source: Patient, [facility] Records - Social History Smoking Status: Former Smoker - quit in 2002 Cigarette use (# per day): No Chew tobacco use (# tins/day): No Frequency of alcohol use: Rare Drug Abuse: None Lives with: Spouse/Significant other Family History: Reviewed & Not Pertinent, CAD, DM, Hypertension Patient has suicidal ideation: No Patient has homicidal ideation: No - Past Medical History Cardiac Medical History: Reports: Hx Hypercholesterolemia, Hx Hypertension, Other - AAA measuring 4.5 cm on 08/25/2017 Endocrine Medical History: Reports: Hx Diabetes Mellitus Type 2 Renal/ Medical History: Reports: Hx Benign Prostatic Hyperplasia, Hx Kidney Stones GI Medical History: Reports: Hx Gastroesophageal Reflux Disease Musculoskeletal Medical History: Reports Hx Arthritis Past Surgical History: Reports: Hx Tonsillectomy - Immunizations Hx Diphtheria, Pertussis, Tetanus Vaccination: No Hx Pneumococcal Vaccination: 03/19/14 Review of Systems - Review of Systems Constitutional: No symptoms reported EENT: No symptoms reported Cardiovascular: See HPI, Chest pain Respiratory: No symptoms reported Gastrointestinal: No symptoms reported Genitourinary: No symptoms reported Male Genitourinary: No symptoms reported Musculoskeletal: No symptoms reported Skin: No symptoms reported Hematologic/Lymphatic: No symptoms reported Neurological/Psychological: No symptoms reported -: Yes All other systems reviewed and negative Physical Exam - Vital signs Vitals: Temp Pulse Resp BP Pulse Ox 97.7 F 76 16 147/87 H 97 03/27/19 04:48 03/27/19 04:48 03/27/19 04:48 03/27/19 04:48 03/27/19 04:48 - Notes Notes: Physical Exam: General: Alert, appears well. HEENT: Normocephalic. Atraumatic. PERRL. Extraocular movements intact. Oropharynx clear. No carotid bruits. Neck: Supple. Non-tender. Respiratory: No respiratory distress. Clear and equal breath sounds bilaterally. Left sided parasternal anterior chest wall tenderness with palpation at the level of T4. Cardiovascular: Regular rate and rhythm. Abdominal: Normal Inspection. Non-tender. No distension. Normal Bowel Sounds. Back: No gross abnormalities. Extremities: Moves all four extremities. Upper extremities: Normal inspection. Normal ROM. Lower extremities: Trace edema. Normal ROM. Neurological: Normal cognition. AAOx4. Normal speech. Psychological: Normal affect. Normal Mood. Skin: Warm. Dry. Normal color. Course - Vital Signs Vital signs: Temp Pulse Resp BP Pulse Ox 97.7 F 76 18 140/97 H 96 03/27/19 04:48 03/27/19 04:48 03/27/19 08:01 03/27/19 08:01 03/27/19 08:01 - Laboratory Result Diagrams: 03/27/19 05:09 03/27/19 05:09 Laboratory results interpreted by me: 03/27/19 03/27/19 05:09 05:09 Plt Count 140 L Chloride 108 H BUN 24 H Glucose 113 H Creatine Kinase 179 H - Diagnostic Test Radiology reviewed: Image reviewed, Reports reviewed - Chest x-ray does not show acute cardiopulmonary process - EKG Interpretation by [facility] EKG shows normal: [place], Intervals, QRS Complexes, ST-T Waves Rate: Normal - 75 Rhythm: A.Fib [place]/QRS: LAHB/LAFB When compared to previous EKG there are: Other - Atrial fibrillation is new since 2017. - Consults Jessi Vidal PRESS SERVICE READER Time consulted: 09:10 Consulted provider: will come to ER Discharge - Discharge Clinical Impression: New onset atrial fibrillation Chest pain Qualifiers: Chest pain type: unspecified Qualified Code(s): R07.9 - Chest pain, unspecified Condition: Stable Disposition: ADMITTED INPATIENT Admitting Provider: Yue (Hospitalist) Unit Admitted: Telemetry Scribe Attestation: 03/27/19 07:54 I personally performed the services described in the documentation, reviewed and edited the documentation which was dictated to the scribe in my presence, and it accurately records my words and actions. I personally performed the services described in the documentation, reviewed and edited the documentation which was dictated to the scribe in my presence, and it accurately records my words and actions.
[2019-03-27] MEDS ORDERED: MAG HYDROX/AL HYDROX/SIMETH SUSP 30 ML UDCUP PO PRN (09:52)
[2019-03-27] MEDS ORDERED: GLUCAGON,HUMAN RECOMB 1 MG INJ SUBCUT PRN (09:52)
[2019-03-27] MEDS ORDERED: DEXTROSE 50%-WATER 25 GM/50 ML DISP.SYRIN IV PRN ×4 (09:52→19:28)
[2019-03-27] MEDS ORDERED: ONDANSETRON HCL INJ/PF 4 MG/2 ML SDV IV PRN (09:52)
[2019-03-27] MEDS ORDERED: ACETAMINOPHEN 325 MG TABLET PO PRN (09:52)
[2019-03-27] MEDS ORDERED: DEXTROSE 40% GEL 15 GM TUBE PO PRN ×4 (09:52→19:28)
[2019-03-27] MEDS ORDERED: ALBUTEROL SULFATE 0.083% NEB 2.5 MG/3 ML AMPUL NEB PRN (09:52)
[2019-03-27] MEDS ORDERED: FAMOTIDINE 20 MG TABLET PO SCH (10:00)
[2019-03-27] MEDS ORDERED: NITROGLYCERIN 0.4 MG/TAB 25 TAB/BOTTLE SL PRN (10:03)
[2019-03-27 12:23] LABS: CREATINE KINASE MB 1.52 ng/mL (<4.55)
[2019-03-27 12:24] LABS: TROPONIN I < 0.012 ng/mL
[2019-03-27] MEDS ORDERED: HEPARIN SOD (PORCINE) 5,000 UNIT/ML 1 ML VIAL SUBCUT SCH (14:00)
--- NOTE | 2019-03-27 14:30 | RADIOLOGY REPORT (SQ) ---
All EXAM DESCRIPTION: BARIUM SWALLOW ESOPHAGUS COMPLETED DATE/TIME: 03/27/2019 2:00 pm REASON FOR STUDY: chest discomfort, reflux COMPARISON: None. TECHNIQUE: Under fluoroscopic guidance, patient ingested effervescent granules followed by thick and thin barium. Fluoroscopic spot images and routine radiographic images acquired and stored on PACS. 12 MM BARIUM TABLET GIVEN: 12 mm barium tablet passed easily through the esophagus into the stomach w ithout delay. LIMITATIONS: None. FLUOROSCOPY TIME: FLUORO TIME: 1.54 minutes 7 images saved to PACS. FINDINGS: NEUROMUSCULAR COORDINATION OF SWALLOW: Normal. No aspiration. ESOPHAGEAL MOTILITY: Normal peristalsis. No esophageal spasm. ESOPHAGEAL MUCOSA: Normal mucosa without masses or ulceration. GASTRO-ESOPHAGEAL JUNCTION: Small hiatal hernia is present. Gastroesophageal reflux to the level of the clavicles was demonstrated. . NON-GI TRACT STRUCTURES: No significant finding. OTHER: No other significant finding. IMPRESSION: SMALL HIATAL HERNIA WITH GASTROESOPHAGEAL REFLUX. OTHERWISE UNREMARKABLE STUDY. RECOMMENDATION: None COMMENT: None Quality ID [id number]: Final reports for procedures using fluoroscopy that document radiation exposure quintin anish, or exposure time and number of fluorographic images (if radiation exposure indices are not avail able) TECHNICAL DOCUMENTATION: JOB ID: [id number] [employer]- All Rights Reserved Reading location - IP/workstation name: [email or web address]
[2019-03-27] MEDS: PANTOPRAZOLE SODIUM 40 MG TABLET.DR PO SCH (16:44)
[2019-03-27] MEDS ORDERED: GLUCAGON,HUMAN RECOMB 1 MG INJ IM PRN (19:28)
[2019-03-27] MEDS ORDERED: HYDRALAZINE HCL INJ/PF 20 MG/1 ML SDV IV PRN (19:30)
--- NOTE | 2019-03-27 19:34 | PDOC H&P ---
History of Present Illness Admission Date/PCP: 03/27/19 09:21 JACEK CONN MD Patient complains of: chest pain History of Present Illness: COLLEEN GROVER is a 73 year old male with the past medical history significant for hypertension, hyperlipidemia, DM 2, AAA (4.5 cm per spouse) who presented to the emergency department today with complaint of 1 week of intermittent, atypical chest pain. The patient confirms that he had a negative nuclear stress test in July of this year and a normal heart catheterization in [place] June 2016. He is followed by Dr. Ding for outpatient cardiology services. Evaluation in the emergency department revealed stable vital signs, unremarkable chemistry, negative troponins, normal TSH, benign chest x-ray, and EKG demonstrating new atrial fibrillation. Prior EKG in November 2016 showed normal sinus rhythm. Per patient and spouse, no known history of atrial fibrillation. The patient is referred to the hospitalist service for admission and management of the above-stated complaints and findings. Past Medical History Cardiac Medical History: Reports: Hyperlipidema, Hypertension, Other - AAA measuring 4.5 cm on 08/25/2017 Denies: Congestive Heart Failure, Myocardial Infarction Pulmonary Medical History: Reports: None EENT Medical History: Reports: None Neurological Medical History: Denies: Ischemic CVA, Seizures Endocrine Medical History: Reports: Diabetes Mellitus Type 2 Denies: Hyperthyroidism, Hypothyroidism Renal/ Medical History: Denies: Chronic Kidney Disease, End Stage Renal Disease Malignancy Medical History: Denies: Lung Cancer GI Medical History: Reports: Gastroesophageal Reflux Disease Musculoskeltal Medical History: Reports: Arthritis Denies: Fibromyalgia Psychiatric Medical History: Denies: Dementia Hematology: Denies: Anemia, Sickle Cell Disease Infectious Medical History: Reports: None Past Surgical History Past Surgical History: Reports: Cardiac Catheterization, Tonsillectomy, Other - Cataract Social History Information Source: Patient Lives with: Spouse/Significant other Smoking Status: Former Smoker Electronic Cigarette use?: No Number of Years Smokin Last Time Smoked: 2002 Frequency of Alcohol Use: Occasional Hx Recreational Drug Use: No Hx Prescription Drug Abuse: No - Advance Directive Resuscitation Status: Full Code Surrogate healthcare decision maker:: The patient's . Family History Family History: Reviewed & Not Pertinent, CAD, DM, Hypertension Parental Family History Reviewed: Yes Children Family History Reviewed: Yes Sibling(s) Family History Reviewed.: Yes Medication/Allergy Home Medications: Metformin HCl [Metformin ER Gastric] 500 mg PO Q12 12/16/16 Tamsulosin HCl [Flomax 0.4 mg Cap.sr] 0.4 mg PO DAILY #0 cap.sr.24h 12/20/16 Ascorbic Acid [Vitamin C 500 mg Tablet] 1,000 mg PO DAILY 05/04/17 Aspirin 81 mg PO DAILY 05/04/17 Metoprolol Succinate [Toprol Xl] 25 mg PO DAILY 05/04/17 Multivitamin [Multivitamins] 1 each PO DAILY 05/04/17 [place]-3 Fatty Acids/Fish Oil [Fish Oil 1,000 mg Capsule] 1 each PO DAILY 05/04/17 Lisinopril [Prinivil 40 mg Tablet] 40 mg PO DAILY 03/27/19 Pravastatin Sodium [Pravachol] 40 mg PO QHS 03/27/19 Allergies/Adverse Reactions: No Known Allergies Allergy (Verified 03/27/19 05:00) Review of Systems Constitutional: ABSENT: chills, fever(s), headache(s), weight gain, weight loss Eyes: ABSENT: visual disturbances Ears: ABSENT: hearing changes Cardiovascular: PRESENT: chest pain. ABSENT: dyspnea on exertion, edema, orthropnea, palpitations Respiratory: ABSENT: cough, hemoptysis Gastrointestinal: ABSENT: abdominal pain, constipation, diarrhea, hematemesis, hematochezia, nausea, vomiting Genitourinary: ABSENT: dysuria, hematuria Musculoskeletal: ABSENT: joint swelling Integumentary: ABSENT: rash, wounds Neurological: ABSENT: abnormal gait, abnormal speech, confusion, dizziness, focal weakness, syncope Psychiatric: ABSENT: anxiety, depression, homidical ideation, suicidal ideation Endocrine: ABSENT: cold intolerance, heat intolerance, polydipsia, polyuria Hematologic/Lymphatic: ABSENT: easy bleeding, easy bruising Physical Exam Vital Signs: Temp Pulse Resp BP Pulse Ox 97.6 F 87 19 157/92 H 97 03/27/19 16:16 03/27/19 16:16 03/27/19 16:16 03/27/19 16:16 03/27/19 16:16 Intake & Output 03/26/19 03/27/19 03/28/19 06:59 06:59 06:59 Weight 89.1 kg General appearance: PRESENT: no acute distress, cooperative, well-developed, well-nourished - Overweight Head exam: PRESENT: atraumatic, normocephalic Eye exam: PRESENT: conjunctiva pink, EOMI, PERRLA. ABSENT: scleral icterus Ear exam: PRESENT: normal external ear exam Mouth exam: PRESENT: moist, tongue midline Neck exam: ABSENT: carotid bruit, JVD, lymphadenopathy, thyromegaly Respiratory exam: PRESENT: clear to auscultation shahzad, symmetrical, unlabored. ABSENT: rales, rhonchi, wheezes Cardiovascular exam: PRESENT: irregular rhythm, +S1, +S2. ABSENT: diastolic murmur, rubs, systolic murmur Pulses: PRESENT: normal dorsalis pedis pul Vascular exam: PRESENT: normal capillary refill GI/Abdominal exam: PRESENT: normal bowel sounds, soft. ABSENT: distended, guarding, mass, organolmegaly, rebound, tenderness Rectal exam: PRESENT: deferred Extremities exam: PRESENT: full ROM. ABSENT: calf tenderness, clubbing, pedal edema Neurological exam: PRESENT: alert, awake, oriented to person, oriented to place, oriented to time, oriented to situation, CN II-XII grossly intact. ABSENT: motor sensory deficit Psychiatric exam: PRESENT: appropriate affect, normal mood. ABSENT: homicidal ideation, suicidal ideation Skin exam: PRESENT: dry, intact, warm. ABSENT: cyanosis, rash Results Laboratory Results: 03/27/19 05:09 03/27/19 05:09 03/27/19 03/27/19 03/27/19 05:09 05:09 05:09 WBC 6.4 RBC 4.44 Hgb 14.7 Hct 43.3 MCV 97 MCH 33.1 MCHC 34.0 RDW 13.4 Plt Count 140 L Seg Neutrophils % 51.1 Sodium 142.1 Potassium 4.5 Chloride 108 H Carbon Dioxide 24 Anion Gap 10 BUN 24 H Creatinine 0.88 Est GFR ( Amer) > 60 Glucose 113 H Calcium 9.2 Total Bilirubin 0.4 AST 30 Alkaline Phosphatase 49 Total Protein 6.6 Albumin 3.9 TSH 2.94 03/27/19 03/27/19 03/27/19 05:09 05:09 07:55 Creatine Kinase 179 H CK-MB (CK-2) Troponin I < 0.012 < 0.012 03/27/19 03/27/19 11:39 11:39 Creatine Kinase 135 CK-MB (CK-2) 1.52 Troponin I < 0.012 Impressions: Esophagus X-Ray 03/27/19 00:00 IMPRESSION: SMALL HIATAL HERNIA WITH GASTROESOPHAGEAL REFLUX. OTHERWISE UNR EMARKABLE STUDY. Chest X-Ray 03/27/19 05:04 IMPRESSION: No acute cardiopulmonary abnormality copyright 2010 [employer]- All Rights Reserved Assessment and Plan - Diagnosis (1) Chest pain Qualifiers: Chest pain type: unspecified Qualified Code(s): R07.9 - Chest pain, unspecified Is this a current diagnosis for this admission?: Yes Plan: The patient is admitted with report of atypical chest pain; intermittent and occurs both at rest and with minimal activity, lasting only a few minutes, to the left substernal border. His pain is nonradiating and not associated with additional symptoms of dizziness, diaphoresis, dyspnea, nausea. The pain does appear to respond to nitroglycerin tabs, but also was noted to resolve spontaneously on its own. He does have multiple risk factors including hypertension, hyperlipidemia, DM 2, and obesity. However, the patient has had recent negative nuclear stress test and cardiac catheterization. EKG demonstrates new onset atrial fibrillation. No significant ST segment changes. Serial troponins are negative x3. The patient is admitted to the medical floor and continuous cardiac telemetry. We will continue to trend troponins. We will evaluate for noncardiac causes of chest pain with a barium swallow study. Start twice daily PPI and Carafate for GERD. Daily aspirin and statin therapy. Cardiac diet. Discussed with Dr. Zelaya; no indications for additional stress testing during this admission. Assuming the patient remains chest pain-free, with normal troponins and reassuring telemetry, he may be discharged to home with outpatient cardiology follow-up in the morning. (2) Hypertension Is this a current diagnosis for this admission?: Yes Plan: Slightly elevated blood pressures today. Continue home dose Toprol and lisinopril. Cardiac diet. Monitor blood pressures and adjust medications as indicated. PCP/cardiology follow-up for continued outpatient management. (3) Diabetes Qualifiers: Diabetes mellitus type: type 2 Diabetes mellitus complication status: without complication Is this a current diagnosis for this admission?: Yes Plan: We will check A1c with a.m. lab work. Holding metformin while admitted. Accu-Cheks before meals and at bedtime with sliding scale insulin. Hypoglycemia protocol in place. (4) New onset atrial fibrillation Is this a current diagnosis for this admission?: Yes Plan: Continue to monitor on continuous cardiac telemetry. Rate controlled on patient's home dose Toprol XL 25 mg once daily. Start Eliquis 5 mg twice daily for chronic anticoagulation needs. TSH is normal. Follow-up with established kiln mechanic as outpatient for further evaluation and management. - Time Time Spent with patient: 35 or more minutes Medications reviewed and adjusted accordingly: Yes Anticipated discharge: Home Within: within 24 hours
[2019-03-27] MEDS ORDERED: METOPROLOL TARTRATE 25 MG TABLET PO ONE (20:00)
[2019-03-27] MEDS ORDERED: ATORVASTATIN CALCIUM 20 MG TABLET PO SCH (22:00)
[2019-03-27] MEDS: SUCRALFATE 1 GM TABLET PO SCH (22:02)
[2019-03-28] MEDS: INSULIN LISPRO 100 UNIT/ML 3 ML VIAL SUBCUT SCH ×2 (03:13→09:32)
[2019-03-28 04:17] LABS: HEMATOCRIT 43.2 % (37.9-51.0); HEMOGLOBIN 14.7 g/dL (13.5-17.0); MEAN CORPUSCULAR HGB CONC 34.1 g/dL (32.0-36.0); MEAN CORPUSCULAR VOLUME 97 fl (80-97); PLATELET COUNT 144 10^3/uL (150-450); RED BLOOD COUNT 4.46 10^6/uL (4.35-5.55); RED CELL DISTRIBUTION WIDTH 13.3 % (11.5-14.0)
[2019-03-28 04:38] LABS: ANION GAP 7 (5-19); BLOOD UREA NITROGEN 21 mg/dL (7-20); CALCIUM 8.8 mg/dL (8.4-10.2); CARBON DIOXIDE 27 mmol/L (22-30); CHLORIDE 106 mmol/L (98-107); CHOLESTEROL 110.01 mg/dL (0-200); GLUCOSE 105 mg/dL (75-110); POTASSIUM 4.5 mmol/L (3.6-5.0); TRIGLYCERIDES 166 mg/dL (<150)
[2019-03-28 04:49] LABS: DIRECT LDL 70 mg/dL (<100)
[2019-03-28 04:52] LABS: VLDL CHOLESTEROL 33.2 mg/dL (10-31)
[2019-03-28] MEDS: PANTOPRAZOLE SODIUM 40 MG TABLET.DR PO SCH (05:57)
[2019-03-28] MEDS: SUCRALFATE 1 GM TABLET PO SCH (09:37)
[2019-03-28] MEDS ORDERED: METOPROLOL SUCCINATE 25 MG TAB.SR.24H PO SCH (10:00)
[2019-03-28] MEDS ORDERED: APIXABAN 5 MG TABLET PO SCH (10:00)
[2019-03-28] MEDS ORDERED: ASPIRIN 81 MG TABLET, CHEWABLE PO SCH (10:00)
[2019-03-28] MEDS ORDERED: LISINOPRIL 10 MG TABLET PO SCH (10:00)
[2019-03-28 11:26] VITALS: BP 127/81
--- NOTE | 2019-03-28 12:49 | EKG REPORT ---
SEVERITY:- ABNORMAL ECG - SINUS BRADYCARDIA CONVERTED FROM A FIB ON 03/27/19 LAD, CONSIDER LEFT ANTERIOR FASCICULAR BLOCK : Confirmed by: Jeremy Hurtado MD 28-Mar-2019 12:48:40
--- NOTE | 2019-03-28 16:31 | PDOC DISCHARGE SUMMARY ---
Impression - Admit/DC Date/PCP Admission Date/Primary Care Provider: 03/27/19 09:21 JACEK CONN MD Discharge Date: 03/28/19 - Discharge Diagnosis (1) Chest pain Is this a current diagnosis for this admission?: Yes (2) Hypertension Is this a current diagnosis for this admission?: Yes (3) Diabetes Is this a current diagnosis for this admission?: Yes (4) New onset atrial fibrillation Is this a current diagnosis for this admission?: Yes (5) GERD (gastroesophageal reflux disease) Is this a current diagnosis for this admission?: Yes (6) Hiatal hernia Is this a current diagnosis for this admission?: Yes - Additional Information Resuscitation Status: Full Code Discharge Diet: Cardiac Discharge Activity: Activity As Tolerated, Balance Activity w/Rest Referrals: JACEK CONN MD [Primary Care Provider] - 04/10/19 4:00 pm () FELY GAMING MD [[facility]] - 04/05/19 9:45 am ([phone]) Prescriptions: Aspirin [Aspirin 81 mg Chewable Tablet] 81 mg PO DAILY #90 tab.chew Sucralfate [Carafate 1 gm Tablet] 1 gm PO ACHS #120 tablet Pantoprazole Sodium [Protonix [address] Tablet] 40 mg PO BID@0600,1700 #60 tablet.dr Home Medications: Metformin HCl [Metformin ER Gastric] 500 mg PO Q12 12/16/16 Tamsulosin HCl [Flomax 0.4 mg Cap.sr] 0.4 mg PO DAILY #0 cap.sr.24h 12/20/16 Ascorbic Acid [Vitamin C 500 mg Tablet] 1,000 mg PO DAILY 05/04/17 Aspirin 81 mg PO DAILY 05/04/17 Metoprolol Succinate [Toprol Xl] 25 mg PO DAILY 05/04/17 Multivitamin [Multivitamins] 1 each PO DAILY 05/04/17 [place]-3 Fatty Acids/Fish Oil [Fish Oil 1,000 mg Capsule] 1 each PO DAILY 05/04/17 Lisinopril [Prinivil 40 mg Tablet] 40 mg PO DAILY 03/27/19 Pravastatin Sodium [Pravachol] 40 mg PO QHS 03/27/19 Acetaminophen [Tylenol 325 mg Tablet] 650 mg PO Q4HP PRN tablet 03/28/19 Aspirin [Aspirin 81 mg Chewable Tablet] 81 mg PO DAILY #90 tab.chew 03/28/19 Lisinopril [Prinivil 10 mg Tablet] 40 mg PO DAILY tablet 03/28/19 Metoprolol Succinate [Toprol Xl 25 mg Tab.sr] 25 mg PO DAILY tab.sr.24h 03/28/19 Nitroglycerin [Nitrostat 0.4 mg (1/150 Gr) Tabs 25/Bottle] 1 tab SL Q5MP PRN bottle 03/28/19 Pantoprazole Sodium [Protonix [address] Tablet] 40 mg PO BID@0600,1700 #60 tablet.dr 03/28/19 Sucralfate [Carafate 1 gm Tablet] 1 gm PO ACHS #120 tablet 03/28/19 Tamsulosin HCl [Flomax 0.4 mg Cap.sr] 0.4 mg PO PCSUPPER cap.sr.24h 03/28/19 History of Present Illiness History of Present Illness: COLLEEN GROVER is a 73 year old male with the past medical history significant for hypertension, hyperlipidemia, DM 2, AAA (4.5 cm per spouse) who presented to the emergency department today with complaint of 1 week of intermittent, atypical chest pain. The patient confirms that he had a negative nuclear stress test in July of this year and a normal heart catheterization in June 2016. He is followed by Dr. Gaming for outpatient cardiology services. Evaluation in the emergency department revealed stable vital signs, unremarkable chemistry, negative troponins, normal TSH, benign chest x-ray, and EKG demonstrating new atrial fibrillation. Prior EKG in November 2016 showed normal sinus rhythm. Per patient and spouse, no known history of atrial fibrillation. The patient is referred to the hospitalist service for admission and management of the above-stated complaints and findings. Hospital Course Hospital Course: The patient was admitted to the medical floor on continuous cardiac telemetry. Chest x-ray was benign. A barium swallow study did reveal a small hiatal hernia with reflux to the level of the clavicles. Therefore he was placed on twice daily Protonix and Carafate before meals and at bedtime. Continue daily aspirin and statin therapy.The patient was admitted to the medical floor on continuous cardiac telemetry. EKG at admission demonstrated missed onset atrial fibrillation. TSH is nml. A1C 6.1%. Lipid panel revealed HDL 23, LDL 70, Trig 110, TChol 166. The patient was monitored overnight; no concerning rhythm changes and no additional episodes of chest discomfort. The following morning, the patient was noted to be in NSR via telemetry. Repeat EKG confirmed that the patient converted to normal sinus rhythm overnight. Reviewed stroke risk regarding PAF; CHADS-VASc score 4.3% yearly stroke risk. The patient indicated that he wished to follow-up with Dr. Gaming to discuss the risks and benefits of chronic anticoagulation prior to initiating therapy. He is instructed to continue daily aspirin therapy. The patient is discharged in stable condition to self-care. He is instructed to follow-up with his primary care provider within 1 week and with his established ditch cleaner at the earliest available appointment. He is encouraged to discuss recommendations for chronic anticoagulation with his ditch cleaner at the follow-up appointment. He is instructed to take his medications as prescribed and to a eat a low-sodium diet. He is advised to continue his home dose of metoprolol, lisinopril, and pravastatin. He is additionally provided prescriptions for Carafate and Protonix. He is encouraged to return to the emergency department as needed for concerning symptoms. Physical Exam Vital Signs: Temp Pulse Resp BP Pulse Ox 97.9 F 60 18 127/81 H 96 03/28/19 11:21 03/28/19 11:21 03/28/19 11:21 03/28/19 11:21 03/28/19 11:21 Intake & Output 03/27/19 03/28/19 03/29/19 06:59 06:59 06:59 Intake Total 0 Balance 0 Weight 89.1 kg 90 kg General appearance: PRESENT: no acute distress, cooperative, well-developed, well-nourished - Overweight Head exam: PRESENT: atraumatic, normocephalic Eye exam: PRESENT: conjunctiva pink, EOMI, PERRLA. ABSENT: scleral icterus Ear exam: PRESENT: normal external ear exam Mouth exam: PRESENT: moist, tongue midline Neck exam: ABSENT: carotid bruit, JVD, lymphadenopathy, thyromegaly Respiratory exam: PRESENT: clear to auscultation shahzad, symmetrical, unlabored. ABSENT: rales, rhonchi, wheezes Cardiovascular exam: PRESENT: RRR, +S1, +S2. ABSENT: diastolic murmur, rubs, systolic murmur Pulses: PRESENT: normal dorsalis pedis pul Vascular exam: PRESENT: normal capillary refill GI/Abdominal exam: PRESENT: normal bowel sounds, soft. ABSENT: distended, guarding, mass, organolmegaly, rebound, tenderness Rectal exam: PRESENT: deferred Extremities exam: PRESENT: full ROM. ABSENT: calf tenderness, clubbing, pedal edema Musculoskeletal exam: PRESENT: ambulatory Neurological exam: PRESENT: alert, awake, oriented to person, oriented to place, oriented to time, oriented to situation, CN II-XII grossly intact. ABSENT: motor sensory deficit Psychiatric exam: PRESENT: appropriate affect, normal mood. ABSENT: homicidal ideation, suicidal ideation Skin exam: PRESENT: dry, intact, warm. ABSENT: cyanosis, rash Results Laboratory Results: WBC 7.0 10^3/uL (4.0-10.5) 03/28/19 04:06 RBC 4.46 10^6/uL (4.35-5.55) 03/28/19 04:06 Hgb 14.7 g/dL (13.5-17.0) 03/28/19 04:06 Hct 43.2 % (37.9-51.0) 03/28/19 04:06 MCV 97 fl (80-97) 03/28/19 04:06 MCH 33.0 pg (27.0-33.4) 03/28/19 04:06 MCHC 34.1 g/dL (32.0-36.0) 03/28/19 04:06 RDW 13.3 % (11.5-14.0) 03/28/19 04:06 Plt Count 144 10^3/uL (150-450) L 03/28/19 04:06 Lymph % (Auto) 36.1 % (13-45) 03/27/19 05:09 [place] % (Auto) 10.3 % (3-13) 03/27/19 05:09 Eos % (Auto) 2.0 % (0-6) 03/27/19 05:09 Baso % (Auto) 0.5 % (0-2) 03/27/19 05:09 Absolute Neuts (auto) 3.3 10^3/uL (1.7-8.2) 03/27/19 05:09 Absolute Lymphs (auto) 2.3 10^3/uL (0.5-4.7) 03/27/19 05:09 Absolute Monos (auto) 0.7 10^3/uL (0.1-1.4) 03/27/19 05:09 Absolute Eos (auto) 0.1 10^3/uL (0.0-0.6) 03/27/19 05:09 Absolute Basos (auto) 0.0 10^3/uL (0.0-0.2) 03/27/19 05:09 Seg Neutrophils % 51.1 % (42-78) 03/27/19 05:09 Sodium 139.6 mmol/L (137-145) 03/28/19 04:06 Potassium 4.5 mmol/L (3.6-5.0) 03/28/19 04:06 Chloride 106 mmol/L (98-107) 03/28/19 04:06 Carbon Dioxide 27 mmol/L (22-30) 03/28/19 04:06 Anion Gap 7 (5-19) 03/28/19 04:06 BUN 21 mg/dL (7-20) H 03/28/19 04:06 Creatinine 0.93 mg/dL (0.52-1.25) 03/28/19 04:06 Est GFR ( Amer) > 60 (>60) 03/28/19 04:06 Est GFR (MDRD) Non-Af > 60 (>60) 03/28/19 04:06 Glucose 105 mg/dL (75-110) 03/28/19 04:06 POC Glucose 117 mg/dL (70-110) H 03/28/19 08:43 Hemoglobin A1c % 6.1 % (4.7-6.0) H 03/28/19 04:06 Calcium 8.8 mg/dL (8.4-10.2) 03/28/19 04:06 Total Bilirubin 0.4 mg/dL (0.2-1.3) 03/27/19 05:09 Direct Bilirubin 0.1 mg/dL (0.0-0.4) 03/27/19 05:09 Neonat Total Bilirubin Not Reportable 03/27/19 05:09 Neonat Direct Bilirubin Not Reportable 03/27/19 05:09 Neonat Indirect Bili Not Reportable 03/27/19 05:09 AST 30 U/L (17-59) 03/27/19 05:09 ALT 23 U/L (<50) 03/27/19 05:09 Alkaline Phosphatase 49 U/L (38-126) 03/27/19 05:09 Creatine Kinase 135 U/L (55-170) 03/27/19 11:39 CK-MB (CK-2) 1.52 ng/mL (<4.55) 03/27/19 11:39 Troponin I < 0.012 ng/mL 03/27/19 11:39 Total Protein 6.6 g/dL (6.3-8.2) 03/27/19 05:09 Albumin 3.9 g/dL (3.5-5.0) 03/27/19 05:09 Triglycerides 166 mg/dL (<150) H 03/28/19 04:06 Cholesterol 110.01 mg/dL (0-200) 03/28/19 04:06 LDL Cholesterol Direct 70 mg/dL (<100) 03/28/19 04:06 VLDL Cholesterol 33.2 mg/dL (10-31) H 03/28/19 04:06 HDL Cholesterol 23 mg/dL (>40) L 03/28/19 04:06 TSH 2.94 uIU/mL (0.47-4.68) 03/27/19 05:09 03/27/19 03/27/19 03/27/19 05:09 07:55 11:39 CK-MB (CK-2) 1.52 Troponin I < 0.012 < 0.012 < 0.012 Impressions: Esophagus X-Ray 03/27/19 00:00 IMPRESSION: SMALL HIATAL HERNIA WITH GASTROESOPHAGEAL REFLUX. OTHERWISE UNREMARKABLE STUDY. Chest X-Ray 03/27/19 05:04 IMPRESSION: No acute cardiopulmonary abnormality copyright 2011 [employer]- All Rights Reserved Plan Plan of Treatment: The patient is discharged home in stable condition. He is advised to follow-up with his primary care provider within 1 week and with his established ditch cleaner, Dr. Gaming, at the first available appointment. Long discussion had with the patient regarding risks and benefits of chronic anticoagulation for PAF; patient indicates that he would like to review this with Dr. Gaming before committing to chronic anticoagulation. He is instructed to continue daily aspirin therapy. He is advised to take his other medications as prescribed and to follow a low- sodium diet. He is encouraged to return to emergency department as needed for concerning symptoms. Time Spent: Greater than 30 Minutes Stroke Is this a Stroke Patient?: No Acute Heart Failure - Is this a Heart Failure Patient?: No
[2019-03-28] MEDS ORDERED: TAMSULOSIN HCL 0.4 MG CAP.SR.24H PO SCH (18:00)
== END 2019-03-28 11:54 | disposition home or self-care (01) ==
LOC: ER 04:31 → INTOOBSV 09:21 → EH 09:21 → 5 16:13
PROVIDERS: ADMIT Internal Medicine; ATTEND Internal Medicine
DX: I48.91 Unspecified atrial fibrillation (principal); R07.9 Chest pain, unspecified; I10 Essential (primary) hypertension; K21.9 Gastro-esophageal reflux disease without esophagitis; K44.9 Diaphragmatic hernia without obstruction or gangrene; I71.4 Abdominal aortic aneurysm, without rupture; M19.90 Unspecified osteoarthritis, unspecified site; E66.9 Obesity, unspecified; E11.65 Type 2 diabetes mellitus with hyperglycemia; Z79.82 Long term (current) use of aspirin; Z79.84 Long term (current) use of oral hypoglycemic drugs; Z87.891 Personal history of nicotine dependence; Z83.3 Family history of diabetes mellitus; Z82.49 Family history of ischemic heart disease and other diseases of the circulatory system
CPT/HCPCS: 93005 ×2; 99285; 36415 ×2; 82553; 82962 ×2; 82550; 84443; 85025; 85027; 80048; 80053; 84484; 83036; 80061; 71045; 74220; 93010 ×2; G0378 ×3; A9270 ×9; J1644; J3490 ×4

== ENCOUNTER 2019-06-13 18:09 | Observation (INO) | payer MEDICARE, OTHER ==
--- NOTE | 2019-06-13 18:47 | ER Document Report ---
ED Medical Screen (RME) - General Chief Complaint: Shortness Of Breath Stated Complaint: SHORTNESS OF BREATH Time Seen by Provider: 06/13/19 18:37 Primary Care Provider: JACEK CONN MD [Primary Care Provider] - Follow up as needed Mode of Arrival: Ambulatory Information source: Patient, Relative Notes: 74-year-old male with history of GI bleed diabetes kidney stones presents emergency department with reports that he has felt sick in bed since Monday. He reports he had a stool and it was black. He also reports that whenever he voids he has extreme pain. Heart rate is in the 140s. Patient has a low-grade temp. patient describes severe urgency and frequency. Patient reports he also has atrial for but has not been taking his Coumadin since Monday because anytime he put anything in his mouth he thought he was going to vomit. He has not vomited. I have greeted and performed a rapid initial assessment of this patient. A comprehensive ED assessment and evaluation of the patient, analysis of test results and completion of the medical decision making process will be conducted by additional ED providers. TRAVEL OUTSIDE OF THE [place] IN LAST 30 DAYS: No - Related Data Allergies/Adverse Reactions: No Known Allergies Allergy (Verified 03/27/19 05:00) Past Medical History - Past Medical History Cardiac Medical History: Reports: Hx Hypercholesterolemia, Hx Hypertension Denies: Hx Atrial Fibrillation, Hx Congestive Heart Failure, Hx Coronary Artery Disease, Hx Heart Attack, Hx Peripheral Vascular Disease, Hx Pulmonary Embolism, Hx Heart Murmur Pulmonary Medical History: Denies: Hx Asthma, Hx Bronchitis, Hx COPD, Hx Pneumonia, Hx Respiratory Failure, Hx Sleep Apnea, Hx Tuberculosis Neurological Medical History: Denies: Hx Cerebrovascular Accident, Hx Seizures, Hx Parkinson's Disease Endocrine Medical History: Reports: Hx Diabetes Mellitus Type 2. Denies: Hx Graves' Disease, Hx Hyperthyroidism, Hx Hypothyroidism Renal/ Medical History: Reports: Hx Benign Prostatic Hyperplasia, Hx Kidney Stones. Denies: Hx End Stage Renal Disease, Hx Peritoneal Dialysis Malignancy Medical History: Denies Hx Lung Cancer GI Medical History: Reports: Hx Gastroesophageal Reflux Disease. Denies: Hx Crohn's Disease, Hx Hepatitis, Hx Hiatal Hernia, Hx Irritable Bowel, Hx Liver Failure, Hx Pancreatitis, Hx Ulcer Musculoskeltal Medical History: Reports Hx Arthritis, Denies Hx Fibromyalgia, Denies Hx Multiple Sclerosis, Denies Hx Muscular Dystrophy, Denies Hx Systemic Lupus Erythematosus Psychiatric Medical History: Denies: Hx Dementia Traumatic Medical History: Denies: Hx Fractures Infectious Medical History: Denies: Hx Hepatitis Past Surgical History: Reports: Hx Cardiac Catheterization, Hx Tonsillectomy, Other - Cataract. Denies: Hx Appendectomy, Hx Bowel Surgery, Hx Cholecystectomy, Hx Colostomy, Hx Coronary Artery Bypass Graft, Hx Gastric Bypass Surgery, Hx Herniorrhaphy, Hx Open Heart Surgery, Hx Pacemaker - Immunizations Hx Diphtheria, Pertussis, Tetanus Vaccination: No Physical Exam - Vital signs Vitals: Temp Pulse Resp BP Pulse Ox 100.9 F H 143 H 26 H 152/112 H 93 06/13/19 18:46 06/13/19 18:46 06/13/19 18:46 06/13/19 18:46 06/13/19 18:46 Course - Vital Signs Vital signs: Temp Pulse Resp BP Pulse Ox 100.9 F H 143 H 26 H 152/112 H 93 06/13/19 18:46 06/13/19 18:46 06/13/19 18:46 06/13/19 18:46 06/13/19 18:46 Doctor's Discharge - Discharge Referrals: JACEK CONN MD [Primary Care Provider] - Follow up as needed
[2019-06-13] MEDS ORDERED: ACETAMINOPHEN 325 MG TABLET PO ONE (18:48)
[2019-06-13] MEDS ORDERED: RINGERS LACTATED IV ONE (18:48)
[2019-06-13 19:31] LABS: VENOUS BLOOD BASE EXCESS -0.7 mmol/L; VENOUS BLOOD HCO3 22.7 mmol/L (20-32); VENOUS BLOOD PCO2 34.3 mmHg (35-63); VENOUS BLOOD PH 7.44 (7.30-7.42)
[2019-06-13 19:35] LABS: ABSOLUTE LYMPHOCYTES (AUTO) 1.1 10^3/uL (0.5-4.7); ABSOLUTE MONOCYTES (AUTO) 1.1 10^3/uL (0.1-1.4); ABSOLUTE NEUT (AUTO) 13.3 10^3/uL (1.7-8.2); BASOPHILS % (AUTO) 0.2 % (0-2); HEMATOCRIT 43.3 % (37.9-51.0); HEMOGLOBIN 14.8 g/dL (13.5-17.0); LYMPHOCYTES % (AUTO) 7.2 % (13-45); MEAN CORPUSCULAR HGB CONC 34.1 g/dL (32.0-36.0); MEAN CORPUSCULAR VOLUME 97 fl (80-97); MONOCYTES % (AUTO) 6.8 % (3-13); PLATELET COUNT 193 10^3/uL (150-450); RED BLOOD COUNT 4.47 10^6/uL (4.35-5.55); RED CELL DISTRIBUTION WIDTH 13.1 % (11.5-14.0); SEGMENTED NEUTROPHILS % (AUTO) 85.8 % (42-78); TOTAL CELLS COUNTED % (AUTO) 100 %; WHITE BLOOD COUNT 15.5 10^3/uL (4.0-10.5)
[2019-06-13 19:48] LABS: INTERNATIONAL RATION (INR) 1.31; PROTHROMBIN TIME 16.4 SEC (11.4-15.4)
[2019-06-13 19:49] LABS: ALKALINE PHOSPHATASE 79 U/L (38-126); ANION GAP 18 (5-19); ASPARTATE AMINO TRANSFERASE 35 U/L (17-59); BILIRUBIN,DIRECT 0.3 mg/dL (0.0-0.4); BILIRUBIN,TOTAL 0.7 mg/dL (0.2-1.3); BLOOD UREA NITROGEN 26 mg/dL (7-20); CARBON DIOXIDE 21 mmol/L (22-30); CHLORIDE 98 mmol/L (98-107); GLUCOSE 167 mg/dL (75-110); POTASSIUM 4.1 mmol/L (3.6-5.0); TOTAL PROTEIN 7.3 g/dL (6.3-8.2)
--- NOTE | 2019-06-13 19:49 | RADIOLOGY REPORT (SQ) ---
EXAM DESCRIPTION: CHEST SINGLE VIEW COMPLETED DATE/TIME: 06/13/2019 7:22 pm REASON FOR STUDY: hx afib sob COMPARISON: Chest radiographs 03/27/2019 EXAM PARAMETERS: NUMBER OF VIEWS: One view. TECHNIQUE: Single frontal radiographic view of the chest acquired. RADIATION DOSE: NA LIMITATIONS: None. FINDINGS: LUNGS AND PLEURA: Few linear densities within the right lung likely representing atelectas is and/or scarring, unchanged. No opacities, masses or pneumothorax. No pleural effusion. MEDIASTINUM AND HILAR STRUCTURES: No masses. Contour normal. HEART AND VASCULAR STRUCTURES: Heart normal in size. Normal vasculature. BONES: No acute findings. HARDWARE: None in the chest. OTHER: No other significant finding. IMPRESSION: No acute pulmonary findings. TECHNICAL DOCUMENTATION: JOB ID: [id number] [employer]- All Rights Reserved Reading location - IP/workstation name: [email or web address]
[2019-06-13 20:53] LABS: APPEARANCE,URINE CLOUDY; BILIRUBIN,URINE NEGATIVE (NEGATIVE); COLOR,URINE AMBER; GLUCOSE, URINE 50 mg/dL (NEGATIVE); KETONES,URINE TRACE mg/dL (NEGATIVE); PROTEIN,URINE >=500 mg/dL (NEGATIVE); URINE SPECIFIC GRAVITY 1.034
[2019-06-13 20:56] LABS: A TYPE INFLUENZA AG NEGATIVE (NEGATIVE); B INFLUENZA AG NEGATIVE (NEGATIVE)
[2019-06-13] MEDS ORDERED: CEFTRIAXONE 1 GM/D5W RTU 1 GM/50 ML RTUPB IV ONE (22:05)
--- NOTE | 2019-06-13 22:34 | ER Document Report ---
ED GI/ - General Chief Complaint: Weakness Stated Complaint: SHORTNESS OF BREATH Time Seen by Provider: 06/13/19 18:37 Mode of Arrival: Ambulatory Notes: Patient is a 74-year-old male that comes emergency department for chief complaint of shaking chills and sweats with weakness for the past 4 days. He also states that he is starting to get a lot of pain with urination. He states he is also felt nauseated and he has not had anything significant to eat or drink for the past several days. He states he feels vaguely short of breath but he denies chest pain, headache, and abdominal pain. Past medical history inc ludes atrial fibrillation on Coumadin but he has not taken the Coumadin in several days, diabetes, kidney stones. is at bedside. TRAVEL OUTSIDE OF THE [place] IN LAST 30 DAYS: No - Related Data Allergies/Adverse Reactions: No Known Allergies Allergy (Verified 06/14/19 00:17) Past Medical History - General Information source: Patient, Relative - Social History Smoking Status: Former Smoker Chew tobacco use (# tins/day): No Frequency of alcohol use: None Drug Abuse: None Lives with: Family Family History: Reviewed & Not Pertinent, CAD, DM, Hypertension Patient has suicidal ideation: No Patient has homicidal ideation: No - Past Medical History Cardiac Medical History: Reports: Hx Hypercholesterolemia, Hx Hypertension Denies: Hx Atrial Fibrillation, Hx Congestive Heart Failure, Hx Coronary Artery Disease, Hx Heart Attack, Hx Peripheral Vascular Disease, Hx Pulmonary Embolism, Hx Heart Murmur Pulmonary Medical History: Denies: Hx Asthma, Hx Bronchitis, Hx COPD, Hx Pneumonia, Hx Respiratory Failure, Hx Sleep Apnea, Hx Tuberculosis Neurological Medical History: Denies: Hx Cerebrovascular Accident, Hx Seizures, Hx Parkinson's Disease Endocrine Medical History: Reports: Hx Diabetes Mellitus Type 2. Denies: Hx Graves' Disease, Hx Hyperthyroidism, Hx Hypothyroidism Renal/ Medical History: Reports: Hx Benign Prostatic Hyperplasia, Hx Kidney Stones. Denies: Hx End Stage Renal Disease, Hx Peritoneal Dialysis Malignancy Medical History: Denies Hx Lung Cancer GI Medical History: Reports: Hx Gastroesophageal Reflux Disease. Denies: Hx Supply Chain Design Manager hn's Disease, Hx Hepatitis, Hx Hiatal Hernia, Hx Irritable Bowel, Hx Liver Failure, Hx Pancreatitis, Hx Ulcer Musculoskeletal Medical History: Reports Hx Arthritis, Denies Hx Fibromyalgia, Denies Hx Multiple Sclerosis, Denies Hx Muscular Dystrophy, Denies Hx Systemic Lupus Erythematosus Psychiatric Medical History: Denies: Hx Dementia Traumatic Medical History: Denies: Hx Fractures Infectious Medical History: Denies: Hx Hepatitis Past Surgical History: Reports: Hx Cardiac Catheterization, Hx Tonsillectomy, Other - Cataract. Denies: Hx Appendectomy, Hx Bowel Surgery, Hx Cholecystectomy, Hx Colostomy, Hx Coronary Artery Bypass Graft, Hx Gastric Bypass Surgery, Hx Herniorrhaphy, Hx Open Heart Surgery, Hx Pacemaker - Immunizations Hx Diphtheria, Pertussis, Tetanus Vaccination: No Hx Pneumococcal Vaccination: 03/19/14 Review of Systems - Review of Systems Constitutional: See HPI EENT: No symptoms reported Cardiovascular: No symptoms reported Respiratory: No symptoms reported Gastrointestinal: See HPI Genitourinary: No symptoms reported Male Genitourinary: No symptoms reported Musculoskeletal: No symptoms reported Skin: No symptoms reported Hematologic/Lymphatic: No symptoms reported Neurological/Psychological: No symptoms reported Physical Exam - Vital signs Vitals: Temp Pulse Resp BP Pulse Ox 100.9 F H 143 H 26 H 152/112 H 93 06/13/19 18:46 06/13/19 18:46 06/13/19 18:46 06/13/19 18:46 06/13/19 18:46 - Notes Notes: GENERAL: Pale and somewhat ill-appearing HEAD: Normocephalic, atraumatic. EYES: Pupils equal, round, and reactive to light. Extraocular movements intact. ENT: Oral mucosa dry, tongue midline. Oropharynx unremarkable. Airway patent. NECK: Full range of motion. Supple. Trachea midline. LUNGS: Clear to auscultation bilaterally, no wheezes, rales, or rhonchi. No respiratory distress. HEART: Tachycardia, irregularly irregular, no murmur ABDOMEN: There is some mild suprapubic tenderness and general lower abdominal tenderness without guarding. Upper abdomen completely benign. Bowel sounds present. GENITOURINARY: No tenderness, swelling, or concerning findings noted EXTREMITIES: Moves all 4 extremities spontaneously. No edema, normal radial and dorsalis pedis pulses bilaterally. No cyanosis. BACK: no cervical, thoracic, lumbar midline tenderness. No saddle anesthesia, normal distal neurovascular exam. Moves all extremities in full range of motion. NEUROLOGICAL: Alert and oriented x3. Normal speech. Cranial nerves II through XII grossly intact. PSYCH: Normal affect, normal mood. SKIN: Pale Course - Re-evaluation Re-evalutation: Patient is ill, concerning for sepsis with fever, tachycardia, he is borderline hypoxic at 93% on initial triage vitals but he is 96% on room air. On my evaluation his lungs are clear, he is denying shortness of breath, he denies any complaints other than feeling weak and ill. 06/13/19 22:08 CBC shows leukocytosis at 15,000 with elevation of neutrophils but no bandemia. Chemistry nonspecific without renal failure. Troponin indeterminate. Chest x- ray unremarkable. Urinalysis consistent with infection. Initiating antibiotics. Based on patient's history of kidney stones along with his fever, tachycardia, and urinary tract infection a CAT scan will be performed. IV access has been placed and he will be given IVF resuscitation for suspected sepsis. CT shows cystitis but no obstructing stones. Patient already aware of the aneurysm without significant change. No concerning findings noted otherwise, no obstructed ureterolithiasis. On reevaluation patient is much better in appearance, tachycardia has improved, skin coloration improved, he is alert and talkative. Discussed results at length. Because of patient's age, fever, concerning vital signs, severe urinary tract infection, I will discuss with hospitalist for admission. Patient and state appreciation and agreement. Discussed with Dr. Cody, hospitalist, patient excepted to telemetry full admission. - Vital Signs Vital signs: Temp Pulse Resp BP Pulse Ox 98.4 F 102 H 23 H 153/93 H 95 06/14/19 02:42 06/14/19 00:00 06/14/19 03:31 06/14/19 03:31 06/14/19 03:31 - Laboratory Result Diagrams: 06/13/19 19:08 06/13/19 19:08 Laboratory results interpreted by me: 06/13/19 06/13/19 06/13/19 19:08 19:08 19:08 WBC 15.5 H Lymph % (Auto) 7.2 L Absolute Neuts (auto) 13.3 H Seg Neutrophils % 85.8 H PT 16.4 H VBG pH VBG pCO2 Carbon Dioxide 21 L BUN 26 H Glucose 167 H Urine Protein Urine Glucose (UA) Urine Ketones Urine Blood Urine Urobilinogen Leukocyte Esterase Rfl Urine Ascorbic Acid 06/13/19 06/13/19 19:08 20:03 WBC Lymph % (Auto) Absolute Neuts (auto) Seg Neutrophils % PT VBG pH 7.44 H VBG pCO2 34.3 L Carbon Dioxide BUN Glucose Urine Protein >=500 H Urine Glucose (UA) 50 H Urine Ketones TRACE H Urine Blood LARGE H Urine Urobilinogen 2.0 H Leukocyte Esterase Rfl SMALL H Urine Ascorbic Acid 40 H - EKG Interpretation by Me Additional EKG results interpreted by me: EKG shows tachycardia rate of 129, atrial fibrillation present, borderline left axis deviation, no T wave inversions or ST segment changes in consecutive leads Discharge - Discharge Clinical Impression: Tachycardia Fever Qualifiers: Fever type: unspecified Qualified Code(s): R50.9 - Fever, unspecified Urinary tract infection Qualifiers: Urinary tract infection type: site unspecified Hematuria presence: with hematuria Qualified Code(s): N39.0 - Urinary tract infection, site not specified Leukocytosis Qualifiers: Leukocytosis type: unspecified Qualified Code(s): D72.829 - Elevated white blood cell count, unspecified Condition: Stable Disposition: ADMITTED INPATIENT Admitting Provider: Glo (Hospitalist) Unit Admitted: Telemetry
--- NOTE | 2019-06-13 23:28 | RADIOLOGY REPORT (SQ) ---
EXAM DESCRIPTION: CT ABDOMEN PELVIS WITHOUT IV CONTRAST COMPLETED DATE/TME: 06/13/2019 22:04 CLINICAL HISTORY: 74 years, Male, UTI, fever, hx kidney stones COMPARISON: 07/19/2017 CT TECHNIQUE: 377 Images stored on PACS. All CT scanners at this facility use dose modulation, iterative reconstruction, and/or weight based dosing when appropriate to reduce radiation dose to as low as reasonably achievable (ALARA). [facility]: Dose Right [facility]: CareDose [facility]: Dose Right [facility]: Teradose 4D [facility]: [employer] LIMITATIONS: None. FINDINGS: The visualized lung bases show emphysematous changes bilaterally. Osseous structures are grossly intact. Fatty infiltrative change to the liver. Splenic granulomata. The adrenal glands, and pancreas are unremarkable. Multiple bilateral renal cysts. The gallbladder is present. Nonobstructing calculus in the inferior pole of the left kidney measuring 7 mm. Vascular calcifications. No obstructing calculus or hydronephrosis. Anterior abdominal wall hernia near the umbilicus containing a portion of bowel. No gross evidence for bowel obstruction. Stable infrarenal abdominal aortic aneurysm measuring 5.6 x 5.4 cm. No free air or free fluid. Enlargement of the prostate. Subjective urinary bladder wall thickening. Urinary bladder is not distended. Occasional sigmoid diverticuli. No CT evidence for acute diverticulitis. However, there are minor inflammatory changes surrounding the urinary bladder which could reflect nonspecific cystitis. Normal appendix. No free air or free fluid. IMPRESSION: Subjective urinary bladder wall thickening with minor surrounding inflammation which may reflect nonspecific cystitis. Enlargement of the prostate. Sigmoid diverticulosis. Stable infrarenal abdominal aortic aneurysm. Multiple bilateral renal cysts. Nonobstructing left renal calculus. Fatty infiltrative change to the liver. Recommend follow-up with a vascular surgery and 4 assessment of aortic aneurysm, as per below. For management of fusiform aneurysmal abdominal aortas: <2.6 cm aorta, no follow-up is recommended. 2.6-2.9 cm aorta, recommend follow-up every 5 years for aortas meeting the criteria for AAA (>1.5 x proximal normal segment; no f/u if < 1.5 x proximal normal segment; no f/u for aortas < 2.6 cm). 3.0-3.4 cm AAA, recommend follow-up every 3 years. 3.5-3.9 cm AAA, recommend follow-up every 2 years. 4.0-4.4 cm AAA, recommend follow-up every 12 months and recommend vascular consultation. 4.5-5.4 cm AAA, recommend follow-up every 6 months and recommend vascular consultation. >5.5 cm AAA, recommend referral to vascular specialist. For management of saccular abdominal aortic aneurysms of any size, recommend vascular consultation. Note: for AAA enlargement of >0.5 cm in 6 months or >1 cm in 1 year, recommend vascular consultation. References: J Am Светлана Radiol 2013; 10(10):789-794; J Vasc Surg. 2018; 67:2-77 TECHNICAL DOCUMENTATION: Quality ID # [id number]: Final reports with documentation of one or more dose reduction techniques (e.g., Automated exposure control, adjustment of the mA and/or kV according to patient size, use of iterative reconstruction technique) copyright 2010 [employer]- All Rights Reserved
[2019-06-14] MEDS ORDERED: ONDANSETRON HCL INJ/PF 4 MG/2 ML SDV IV PRN (02:14)
[2019-06-14] MEDS ORDERED: ACETAMINOPHEN 325 MG TABLET PO PRN (02:14)
[2019-06-14] MEDS ORDERED: MAGNESIUM HYDROXIDE SUSP 30 ML UDCUP PO PRN (02:25)
[2019-06-14] MEDS ORDERED: IBUPROFEN 800 MG TABLET PO PRN (02:25)
[2019-06-14] MEDS ORDERED: MAG HYDROX/AL HYDROX/SIMETH SUSP 30 ML UDCUP PO PRN (02:25)
[2019-06-14] MEDS ORDERED: GLUCAGON,HUMAN RECOMB 1 MG INJ IM PRN (02:26)
[2019-06-14] MEDS ORDERED: DEXTROSE 40% GEL 15 GM TUBE PO PRN ×2 (02:26)
[2019-06-14] MEDS ORDERED: DEXTROSE 50%-WATER 25 GM/50 ML DISP.SYRIN IV PRN ×2 (02:26)
[2019-06-14] MEDS ORDERED: METOPROLOL TARTRATE PF/INJ 5 MG/5 ML SDV IV PRN (02:27)
[2019-06-14] MEDS: RINGERS SOLUTION,LACTATED 1,000 ML IV PRN ×5 (03:50→23:40)
--- NOTE | 2019-06-14 05:05 | PDOC H&P ---
History of Present Illness Admission Date/PCP: 06/14/2019 01:50 JACEK CONN MD Patient complains of: Fever History of Present Illness: COLLEEN GROVER is a 74 year old male who presented the emergency room with a 5- day history of fever. Patient admits a progressively worsening fever with chills and associated generalized weakness with malaise for the last 5 days. He reports the associated symptoms of dysuria, hematuria and melena. Additionally he reports the accompanying symptoms of nausea and anorexia. He denies other associated or accompanying signs and symptoms. He denies prior similar episodes. He has not identified any aggravating or ameliorating factors for his fever. In the emergency room he was found to have a temperature of 100.9 F on admission and was also noted to be tachycardic with a sinus rate in the 140s. Lactic acid was 1.9 and a CBC showed a white blood count of 15,500. Urinalysis revealed too numerous to count red and white cells present with a negative nitrite. Urine and blood cultures are pending. Patient was subsequently admitted to the hospital for further evaluation and treatment. Past Medical History Cardiac Medical History: Reports: Hyperlipidema, Hypertension, Peripheral Vascular Disease - Abdominal aortic aneurysm last measured at 4.5 cm Denies: Atrial Fibrillation, Congestive Heart Failure, Coronary Artery Dis ease, Myocardial Infarction, Pulmonary Embolism, Heart Murmur Pulmonary Medical History: Denies: Asthma, Bronchitis, Chronic Obstructive Pulmonary Disease (COPD), Pneumonia, Respiratory Failure, Sleep Apnea, Tuberculosis EENT Medical History: Reports: Cataracts Denies: Ears - Hearing aids Neurological Medical History: Denies: Hemorrhagic CVA, Ischemic CVA, Seizures Endocrine Medical History: Reports: Diabetes Mellitus Type 2 Denies: Diabetes Mellitus Type 1, Hyperthyroidism, Hypothyroidism Renal/ Medical History: Denies: Chronic Kidney Disease, Nephrolithiasis Malignancy Medical History: Reports: None GI Medical History: Reports: Gastroesophageal Reflux Disease Denies: Cirrhosis, Crohn's Disease, Hepatitis, Hiatal Hernia, Ulcerative Colitis Musculoskeltal Medical History: Reports: Arthritis Denies: Fibromyalgia, Gout Skin Medical History: Denies: Eczema, Psoriasis Psychiatric Medical History: Denies: Alcohol Dependency, Dementia, Substance Abuse, Tobacco Dependency Traumatic Medical History: Reports: None Hematology: Reports: Bleeding Tendencies - On warfarin Denies: Anemia Infectious Medical History: Reports: None Past Surgical History Past Surgical History: Reports: Cardiac Catheterization, Tonsillectomy, Other - Bilateral cataract surgeries Social History Information Source: Patient Lives with: Spouse/Significant other Smoking Status: Former Smoker Electronic Cigarette use?: No Frequency of Alcohol Use: Occasional Hx Recreational Drug Use: No Drugs: None Hx Prescription Drug Abuse: No - Advance Directive Resuscitation Status: Full Code Surrogate healthcare decision maker:: Federico Hunt Family History Family History: CAD, DM, Hypertension Parental Family History Reviewed: Yes Children Family History Reviewed: No Sibling(s) Family History Reviewed.: Yes Medication/Allergy Home Medications: Ascorbate Calcium [Vitamin C] 500 mg PO DAILY 06/14/19 Lisinopril [Prinivil 40 mg Tablet] 40 mg PO DAILY 06/14/19 Metformin HCl 500 mg PO BID 06/14/19 Metoprolol Succinate [Toprol Xl 25 mg Tab.sr] 25 mg PO DAILY 06/14/19 Multivitamin [Multivitamins] 1 each PO DAILY 06/14/19 Crawford-3 Fatty Acids/Fish Oil [Fish Oil 1,000 Mg Capsule] 1 each PO DAILY 05/20 01/04 Pravastatin Sodium [Pravachol] 40 mg PO DAILY 06/14/19 Ranitidine HCl [Zantac] 150 mg PO DAILY 06/14/19 Tamsulosin HCl [Flomax 0.4 mg Cap.sr] 0.4 mg PO DAILY 06/14/19 Warfarin Sodium 0.5 mg PO DAILY 06/14/19 Warfarin Sodium 5 mg PO DAILY 06/14/19 Allergies/Adverse Reactions: No Known Allergies Allergy (Verified 06/14/19 00:17) Review of Systems Constitutional: PRESENT: as per HPI, anorexia, chills, fever(s), weakness - Generalized, other - Malaise Eyes: ABSENT: visual disturbances, other - Eye pain Ears: ABSENT: hearing changes, other - Ear pain Nose, Mouth, and Throat: ABSENT: headache(s), mouth pain, sore throat Cardiovascular: ABSENT: chest pain, palpitations Respiratory: ABSENT: cough, dyspnea Gastrointestinal: PRESENT: as per HPI, nausea, vomiting. ABSENT: abdominal pain, constipation, diarrhea Genitourinary: PRESENT: as per HPI, dysuria, hematuria Musculoskeletal: ABSENT: back pain, joint swelling Integumentary: ABSENT: pruritus, rash Neurological: ABSENT: confusion, convulsions, focal weakness, memory loss, syncope Psychiatric: ABSENT: anxiety, depression Endocrine: ABSENT: cold intolerance, heat intolerance Hematologic/Lymphatic: PRESENT: easy bleeding - On Coumadin, easy bruising - On Coumadin Allergic/Immunologic: ABSENT: seasonal rhinorrhea Physical Exam Vital Signs: Temp Pulse Resp BP Pulse Ox 98.1 F 102 H 21 H 178/105 H 95 06/14/19 00:06 06/14/19 00:00 06/14/19 01:31 06/14/19 01:31 06/14/19 01:31 Intake & Output 06/12/19 06/13/19 06/14/19 23:59 23:59 23:59 Intake Total 50 Balance 50 Weight 85.8 kg General appearance: PRESENT: no acute distress, cooperative Head exam: PRESENT: atraumatic, normocephalic Eye exam: PRESENT: conjunctiva pink. ABSENT: conjunctival injection, scleral icterus Ear exam: PRESENT: normal external ear exam. ABSENT: bleeding, drainage Mouth exam: PRESENT: dry mucosa, neck supple Neck exam: ABSENT: thyromegaly, tracheal deviation Respiratory exam: PRESENT: clear to auscultation shahzad, symmetrical, unlabored Cardiovascular exam: PRESENT: irregular rhythm - Irregularly irregular rate and rhythm, rubs, tachycardia. ABSENT: clicks, gallop Pulses: PRESENT: normal radial pulses, normal dorsalis pedis pul Vascular exam: PRESENT: normal capillary refill. ABSENT: pallor GI/Abdominal exam: PRESENT: normal bowel sounds, soft Rectal exam: PRESENT: deferred Extremities exam: ABSENT: joint swelling, pedal edema Musculoskeletal exam: ABSENT: deformity, dislocation Neurological exam: PRESENT: alert, oriented to person, oriented to place, oriented to time, oriented to situation, CN II-XII grossly intact. ABSENT: motor sensory deficit Psychiatric exam: PRESENT: appropriate affect, normal mood Skin exam: PRESENT: dry, intact, warm. ABSENT: jaundice, rash, urticaria Results Laboratory Results: 06/13/19 19:08 06/13/19 19:08 06/13/19 06/13/19 06/13/19 19:08 19:08 19:08 WBC 15.5 H RBC 4.47 Hgb 14.8 Hct 43.3 MCV 97 MCH 33.0 MCHC 34.1 RDW 13.1 Plt Count 193 Seg Neutrophils % 85.8 H VBG pH 7.44 H VBG pCO2 34.3 L VBG HCO3 22.7 VBG Base Excess -0.7 Sodium 137.2 Potassium 4.1 Chloride 98 Carbon Dioxide 21 L Anion Gap 18 BUN 26 H Creatinine 1.12 Est GFR ( Amer) > 60 Glucose 167 H Lactic Acid Calcium 9.0 Total Bilirubin 0.7 AST 35 Alkaline Phosphatase 79 Total Protein 7.3 Albumin 4.0 Urine Color Urine Appearance Urine pH Ur Specific [place] Urine Protein Urine Glucose (UA) Urine Ketones Urine Blood Urine RBC (Auto) 06/13/19 06/13/19 19:08 20:03 WBC RBC Hgb Hct MCV MCH MCHC RDW Plt Count Seg Neutrophils % VBG pH VBG pCO2 VBG HCO3 VBG Base Excess Sodium Potassium Chloride Carbon Dioxide Anion Gap BUN Creatinine Est GFR ( Amer) Glucose Lactic Acid 1.9 Calcium Total Bilirubin AST Alkaline Phosphatase Total Protein Albumin Urine Color NOHEMY Urine Appearance CLOUDY Urine pH 5.0 Ur Specific [place] 1.034 Urine Protein >=500 H Urine Glucose (UA) 50 H Urine Ketones TRACE H Urine Blood LARGE H Urine RBC (Auto) >182 06/13/19 19:08 Troponin I 0.020 Impressions: Chest X-Ray 06/13/19 18:41 IMPRESSION: No acute pulmonary findings. Abdomen/Pelvis CT 06/13/19 22:04 IMPRESSION: Subjective urinary bladder wall thickening with minor surrounding inflammation which may reflect nonspecific cystitis. Enlargement of the prostate. Sigmoid diverticulosis. Stable infrarenal abdominal aortic aneurysm. Multiple bilateral renal cysts. Nonobstructing left renal calculus. Fatty infiltrative change to the liver. Recommend follow-up with a vascular surgery and 4 assessment of aortic aneurysm, as per below. For management of fusiform aneurysmal abdominal aortas: <2.6 cm aorta, no follow-up is recommended. 2.6-2.9 cm aorta, recommend follow-up every 5 years for aortas meeting the criteria for AAA (>1.5 x proximal normal segment; no f/u if < 1.5 x proximal normal segment; no f/u for aortas < 2.6 cm). 3.0-3.4 cm AAA, recommend follow-up every 3 years. 3.5-3.9 cm AAA, recommend follow-up every 2 years. 4.0-4.4 cm AAA, recommend follow-up every 12 months and recommend vascular consultation. 4.5-5.4 cm AAA, recommend follow-up every 6 months and recommend vascular consultation. >5.5 cm AAA, recommend referral to vascular specialist. For management of saccular abdominal aortic aneurysms of any size, recommend vascular consultation. Note: for AAA enlargement of >0.5 cm in 6 months or >1 cm in 1 year, recommend vascular consultation. References: J Am Светлана Radiol 2013; 10(10):789-794; J Vasc Surg. 2018; 67:2-77 TECHNICAL DOCUMENTATION: Quality ID # [id number]: Final reports with documentation of one or more dose reduction techniques (e.g., Automated exposure control, adjustment of the mA and/or kV according to patient size, use of iterative reconstruction technique) copyright 2010 [employer]- All Rights Reserved Assessment and Plan - Diagnosis (1) Urinary tract infection Qualifiers: Urinary tract infection type: site unspecified Hematuria presence: with hematuria Qualified Code(s): N39.0 - Urinary tract infection, site not specified; R31.9 - Hematuria, unspecified Is this a current diagnosis for this admission?: Yes (2) SIRS (systemic inflammatory response syndrome) Is this a current diagnosis for this admission?: Yes (3) Fever Qualifiers: Fever type: unspecified Qualified Code(s): R50.9 - Fever, unspecified Is this a current diagnosis for this admission?: Yes (4) Tachycardia Is this a current diagnosis for this admission?: Yes (5) Leukocytosis Qualifiers: Leukocytosis type: unspecified Qualified Code(s): D72.829 - Elevated white blood cell count, unspecified Is this a current diagnosis for this admission?: Yes (6) Chronic atrial fibrillation Is this a current diagnosis for this admission?: Yes (7) Diabetes mellitus type 2 in nonobese Is this a current diagnosis for this admission?: Yes (8) History of abdominal aortic aneurysm Is this a current diagnosis for this admission?: Yes (9) Hypertension Qualifiers: Hypertension type: essential hypertension Qualified Code(s): I10 - Essential (primary) hypertension Is this a current diagnosis for this admission?: Yes (10) GERD (gastroesophageal reflux disease) Qualifiers: Esophagitis presence: esophagitis presence not specified Qualified Code(s): K21.9 - Gastro-esophageal reflux disease without esophagitis Is this a current diagnosis for this admission?: Yes (11) Hiatal hernia Is this a current diagnosis for this admission?: Yes (12) Abdominal aortic aneurysm (AAA) greater than 5.5 cm in diameter in male Is this a current diagnosis for this admission?: Yes - Plan Summary Summary: Patient is admitted to a medical telemetry bed where he will receive routine supportive and symptomatic cares. He will be treated with IV fluids utilizing lactated Ringer's solution at 167 mL/h initially. Additionally he will receive antibiotic therapy with Rocephin pending blood and urine culture results. Serial lactic acids will be obtained. Patient's fever will be treated with Tylenol and/or ibuprofen as required. He will be maintained on a diet with cardiac and diabetic restrictions. Before meals and at bedtime Accu-Cheks to be performed with sliding scale insulin for hyperglycemia and a hypoglycemic protocol in place. He will be continued on his usual medications for his chronic medical problems, as appropriate, once his medication list has been reconciled and verified. - Time Time Spent with patient: 15-24 minutes Medications reviewed and adjusted accordingly: Yes Anticipated discharge: Home - Inpatient Certification Based on my medical assessment, after consideration of the patient's comorbidities, presenting symptoms, or acuity I expect that the services needed warrant INPATIENT care.: Yes I certify that my determination is in accordance with my understanding of [employer] 's requirements for reasonable and necessary INPATIENT services [42 CFR 412.3e].: Yes Medical Necessity: Significant Comorbidiites Make Outpatient Treatment Too Risky, Need Close Monitoring Due to Risk of Patient Decompensation, Need For IV Fluids, Need For Continuous Telemetry Monitoring, Need for IV Antibiotics, Risk of Complication if Not Cared For in Hospital
[2019-06-14] MEDS ORDERED: HEPARIN SOD (PORCINE) 5,000 UNIT/ML 1 ML VIAL SUBCUT SCH (06:00)
[2019-06-14 06:52] LABS: HEMATOCRIT 40.3 % (37.9-51.0); HEMOGLOBIN 14.1 g/dL (13.5-17.0); MEAN CORPUSCULAR HEMOGLOBIN 33.7 pg (27.0-33.4); MEAN CORPUSCULAR HGB CONC 35.1 g/dL (32.0-36.0); MEAN CORPUSCULAR VOLUME 96 fl (80-97); PLATELET COUNT 176 10^3/uL (150-450); RED BLOOD COUNT 4.19 10^6/uL (4.35-5.55); RED CELL DISTRIBUTION WIDTH 13.2 % (11.5-14.0); WHITE BLOOD COUNT 11.8 10^3/uL (4.0-10.5)
[2019-06-14 06:55] LABS: INTERNATIONAL RATION (INR) 1.26; PROTHROMBIN TIME 15.9 SEC (11.4-15.4)
[2019-06-14] MEDS: INSULIN REG, HUMAN 100 UNIT/ML 3 ML VIAL (PYX) SUBCUT SCH ×3 (08:22→17:00)
[2019-06-14] MEDS: METOCLOPRAMIDE HCL INJ/PF 10 MG/2 ML SDV IV SCH ×4 (08:42→22:05)
--- NOTE | 2019-06-14 09:06 | Progress Note ---
Provider Note Provider Note: 06/14/2019-page admitted early a.m. I have evaluated patient labs. Will continue to follow may change plan of care based on patient needs
[2019-06-14] MEDS: TAMSULOSIN HCL 0.4 MG CAP.SR.24H PO SCH (09:28)
[2019-06-14] MEDS: MULTIVITAMIN TABLET PO SCH (09:28)
[2019-06-14] MEDS: DOCUSATE SODIUM 100 MG CAPSULE PO SCH ×2 (09:28→17:04)
[2019-06-14] MEDS: METFORMIN HCL 500 MG TABLET PO SCH ×2 (09:28→17:12)
[2019-06-14] MEDS: LISINOPRIL 10 MG TABLET PO SCH (09:28)
[2019-06-14] MEDS ORDERED: METOPROLOL SUCCINATE 25 MG TAB.SR.24H PO SCH (10:00)
[2019-06-14] MEDS ORDERED: HYDROCORTISONE ACETATE 25 MG SUPP.RECT PR PRN (13:47)
[2019-06-14] MEDS: OXYCODONE-ACETAMINOPHEN 5-325 MG TABLET PO PRN (14:22)
[2019-06-14 16:00] LABS: APPEARANCE,URINE SLIGHTLY-CLOUDY; BILIRUBIN,URINE NEGATIVE (NEGATIVE); COLOR,URINE YELLOW; GLUCOSE, URINE NEGATIVE (NEGATIVE); KETONES,URINE NEGATIVE (NEGATIVE); LEUKOCYTE ESTERASE,URINE SMALL (NEGATIVE); NITRITE,URINE NEGATIVE (NEGATIVE); PROTEIN,URINE 100 mg/dL (NEGATIVE); URINE SPECIFIC GRAVITY 1.013; UROBILINOGEN,URINE NEGATIVE mg/dL (<2.0)
--- NOTE | 2019-06-14 19:25 | EKG REPORT ---
SEVERITY:- ABNORMAL ECG - ATRIAL FIBRILLATION, V-RATE [id number] LEFT ANTERIOR FASCICULAR BLOCK : Confirmed by: Melissa Zelaya MD 14-Jun-2019 19:24:54
[2019-06-14] MEDS ORDERED: WARFARIN SODIUM 3 MG TABLET PO SCH (22:00)
[2019-06-14] MEDS ORDERED: CEFTRIAXONE 1 GM/D5W RTU 1 GM/50 ML RTUPB IV SCH (22:00)
[2019-06-15] MEDS: INSULIN REG, HUMAN 100 UNIT/ML 3 ML VIAL (PYX) SUBCUT SCH ×3 (01:39→12:43)
[2019-06-15] MEDS: OXYCODONE-ACETAMINOPHEN 5-325 MG TABLET PO PRN (04:32)
[2019-06-15 05:21] LABS: HEMATOCRIT 38.5 % (37.9-51.0); HEMOGLOBIN 13.3 g/dL (13.5-17.0); MEAN CORPUSCULAR HEMOGLOBIN 33.4 pg (27.0-33.4); MEAN CORPUSCULAR HGB CONC 34.6 g/dL (32.0-36.0); MEAN CORPUSCULAR VOLUME 96 fl (80-97); PLATELET COUNT 170 10^3/uL (150-450); RED CELL DISTRIBUTION WIDTH 13.5 % (11.5-14.0); WHITE BLOOD COUNT 9.1 10^3/uL (4.0-10.5)
[2019-06-15 05:27] LABS: INTERNATIONAL RATION (INR) 1.23; PROTHROMBIN TIME 15.6 SEC (11.4-15.4)
[2019-06-15] MEDS: RINGERS SOLUTION,LACTATED 1,000 ML IV PRN ×2 (05:36→12:34)
[2019-06-15 07:59] LABS: ANION GAP 14 (5-19); BLOOD UREA NITROGEN 29 mg/dL (7-20); CALCIUM 8.5 mg/dL (8.4-10.2); CARBON DIOXIDE 22 mmol/L (22-30); CHLORIDE 104 mmol/L (98-107); GLUCOSE 108 mg/dL (75-110)
[2019-06-15] MEDS: METOCLOPRAMIDE HCL INJ/PF 10 MG/2 ML SDV IV SCH ×2 (08:13→12:34)
[2019-06-15] MEDS: LISINOPRIL 10 MG TABLET PO SCH (09:15)
[2019-06-15] MEDS: TAMSULOSIN HCL 0.4 MG CAP.SR.24H PO SCH (09:16)
[2019-06-15] MEDS: METFORMIN HCL 500 MG TABLET PO SCH (09:16)
[2019-06-15] MEDS: MULTIVITAMIN TABLET PO SCH (09:16)
[2019-06-15] MEDS: DOCUSATE SODIUM 100 MG CAPSULE PO SCH (09:17)
--- NOTE | 2019-06-15 09:48 | PDOC DISCHARGE SUMMARY ---
Impression - Admit/DC Date/PCP Admission Date/Primary Care Provider: 06/14/19 02:15 JACEK CONN MD Discharge Date: 06/15/19 - Discharge Diagnosis (1) Abdominal aortic aneurysm (AAA) greater than 5.5 cm in diameter in male Is this a current diagnosis for this admission?: Yes (2) Chronic atrial fibrillation Is this a current diagnosis for this admission?: Yes (3) Diabetes mellitus type 2 in nonobese Is this a current diagnosis for this admission?: Yes (4) Fever Is this a current diagnosis for this admission?: Yes (5) History of abdominal aortic aneurysm Is this a current diagnosis for this admission?: Yes (6) Leukocytosis Is this a current diagnosis for this admission?: Yes (7) SIRS (systemic inflammatory response syndrome) Is this a current diagnosis for this admission?: Yes (8) Tachycardia Is this a current diagnosis for this admission?: Yes (9) Urinary tract infection Is this a current diagnosis for this admission?: Yes (10) GERD (gastroesophageal reflux disease) Is this a current diagnosis for this admission?: Yes (11) Hiatal hernia Is this a current diagnosis for this admission?: Yes (12) Hypertension Is this a current diagnosis for this admission?: Yes - Assessment Summary: Patient is admitted to a medical telemetry bed where he will receive routine supportive and symptomatic cares. He will be treated with IV fluids utilizing lactated Ringer's solution at 167 mL/h initially. Additionally he will receive antibiotic therapy with Rocephin pending blood and urine culture results. Serial lactic acids will be obtained. Patient's fever will be treated with Tylenol and/or ibuprofen as required. He will be maintained on a diet with cardiac and diabetic restrictions. Before meals and at bedtime Accu-Cheks to be performed with sliding scale insulin for hyperglycemia and a hypoglycemic protocol in place. He will be continued on his usual medications for his chronic medical problems, as appropriate, once his medication list has been reconciled and verified. - Additional Information Resuscitation Status: Full Code Discharge Diet: As Tolerated Discharge Activity: Activity As Tolerated Referrals: JACEK CONN MD [Primary Care Provider] - Follow up as needed Prescriptions: Cefuroxime Axetil [Ceftin 500 mg Tablet] 1 tab PO BID #20 tablet Metoprolol Succinate [Toprol Xl 50 mg Tab.sr] 50 mg PO Q12 #60 tab.sr.24h Home Medications: Lisinopril [Prinivil 40 mg Tablet] 40 mg PO DAILY 06/14/19 Metformin HCl [Metformin HCl ER] 500 mg PO BID 06/14/19 Multivitamin [Multivitamins] 1 each PO DAILY 06/14/19 Nitroglycerin [Nitrostat 0.4 mg (1/150 Gr) Tabs 25/Bottle] 1 tab SL Q5MP PRN 06/14/19 Pantoprazole Sodium 40 mg PO BID 06/14/19 Pravastatin Sodium [Pravachol] 40 mg PO QHS 06/14/19 Sucralfate [Carafate 1 gm Tablet] 1 gm PO QID 06/14/19 Tamsulosin HCl [Flomax 0.4 mg Cap.sr] 0.4 mg PO DAILY 06/14/19 Warfarin Sodium 0.5 mg PO DAILY 06/14/19 Warfarin Sodium 5 mg PO DAILY 06/14/19 Cefuroxime Axetil [Ceftin 500 mg Tablet] 1 tab PO BID #20 tablet 06/15/19 Metformin HCl [Glucophage 500 mg Tablet] 500 mg PO BID tablet 06/15/19 Metoprolol Succinate [Toprol Xl 50 mg Tab.sr] 50 mg PO Q12 #60 tab.sr.24h 06/15/19 Warfarin Sodium [Coumadin 3 mg Tablet] 6 mg PO QHS tablet 06/15/19 History of Present Illiness History of Present Illness: COLLEEN GROVER is a 74 year old male who presented to the ER with fever Hospital Course Hospital Course: Patient presented to the ER with 5-day history of fever. Patient reported progressive worsening fever with chills associated generalized weakness. He had dysuria, hematuria and overall weakness. Patient's temp on arrival was 100.9 had a lactacidosis 1.9 and a white count of 15.5. Urinalysis exhibited multiple white cells. Patient was admitted treated aggressively fluids and antibiotics and has improved sufficiently return home. I will place patient on Ceftin 500 mg p.o. twice daily and await cultures if they returned showing other antibiotic needs I will contact patient on an outpatient basis. Patient has agreed with plan of care. Patient follow-up with primary care in 1 week. Physical Exam Vital Signs: Temp Pulse Resp BP Pulse Ox 97.8 F 92 18 140/90 H 98 06/15/19 07:52 06/15/19 07:52 06/15/19 07:52 06/15/19 07:52 06/15/19 07:52 Intake & Output 06/14/19 06/15/19 06/16/19 06:59 06:59 06:59 Intake Total 2790 4730 Balance 2790 4730 Weight 85.8 kg 88.6 kg General appearance: PRESENT: no acute distress, well-developed, well-nourished Head exam: PRESENT: atraumatic, normocephalic Eye exam: PRESENT: conjunctiva pink, EOMI, PERRLA. ABSENT: scleral icterus Ear exam: PRESENT: normal external ear exam Mouth exam: PRESENT: moist, tongue midline Neck exam: ABSENT: carotid bruit, JVD, lymphadenopathy, thyromegaly Respiratory exam: PRESENT: clear to auscultation shahzad. ABSENT: rales, rhonchi, wheezes Cardiovascular exam: PRESENT: RRR. ABSENT: diastolic murmur, rubs, systolic murmur Pulses: PRESENT: normal dorsalis pedis pul Vascular exam: PRESENT: normal capillary refill GI/Abdominal exam: PRESENT: normal bowel sounds, soft. ABSENT: distended, gua rding, mass, organolmegaly, rebound, tenderness Rectal exam: PRESENT: deferred Extremities exam: PRESENT: full ROM. ABSENT: calf tenderness, clubbing, pedal edema Neurological exam: PRESENT: alert, awake, oriented to person, oriented to place, oriented to time, oriented to situation, CN II-XII grossly intact. ABSENT: emmett r sensory deficit Psychiatric exam: PRESENT: appropriate affect, normal mood. ABSENT: homicidal ideation, suicidal ideation Skin exam: PRESENT: dry, intact, warm. ABSENT: cyanosis, rash Results Laboratory Results: WBC 9.1 10^3/uL (4.0-10.5) 06/15/19 04:24 RBC 4.00 10^6/uL (4.35-5.55) L 06/15/19 04:24 Hgb 13.3 g/dL (13.5-17.0) L 06/15/19 04:24 Hct 38.5 % (37.9-51.0) 06/15/19 04:24 MCV 96 fl (80-97) 06/15/19 04:24 MCH 33.4 pg (27.0-33.4) 06/15/19 04:24 MCHC 34.6 g/dL (32.0-36.0) 06/15/19 04:24 RDW 13.5 % (11.5-14.0) 06/15/19 04:24 Plt Count 170 10^3/uL (150-450) 06/15/19 04:24 Lymph % (Auto) 7.2 % (13-45) L 06/13/19 19:08 [place] % (Auto) 6.8 % (3-13) 06/13/19 19:08 Eos % (Auto) 0.0 % (0-6) 06/13/19 19:08 Baso % (Auto) 0.2 % (0-2) 06/13/19 19:08 Absolute Neuts (auto) 13.3 10^3/uL (1.7-8.2) H 06/13/19 19:08 Absolute Lymphs (auto) 1.1 10^3/uL (0.5-4.7) 06/13/19 19:08 Absolute Monos (auto) 1.1 10^3/uL (0.1-1.4) 06/13/19 19:08 Absolute Eos (auto) 0.0 10^3/uL (0.0-0.6) 06/13/19 19:08 Absolute Basos (auto) 0.0 10^3/uL (0.0-0.2) 06/13/19 19:08 Seg Neutrophils % 85.8 % (42-78) H 06/13/19 19:08 PT 15.6 SEC (11.4-15.4) H 06/15/19 04:24 INR 1.23 06/15/19 04:24 VBG pH 7.44 (7.30-7.42) H 06/13/19 19:08 VBG pCO2 34.3 mmHg (35-63) L 06/13/19 19:08 VBG HCO3 22.7 mmol/L (20-32) 06/13/19 19:08 VBG Base Excess -0.7 mmol/L 06/13/19 19:08 Sodium 139.9 mmol/L (137-145) 06/15/19 04:24 Potassium 4.0 mmol/L (3.6-5.0) 06/15/19 04:24 Chloride 104 mmol/L (98-107) 06/15/19 04:24 Carbon Dioxide 22 mmol/L (22-30) 06/15/19 04:24 Anion Gap 14 (5-19) 06/15/19 04:24 BUN 29 mg/dL (7-20) H 06/15/19 04:24 Creatinine 0.94 mg/dL (0.52-1.25) 06/15/19 04:24 Est GFR ( Amer) > 60 (>60) 06/15/19 04:24 Est GFR (MDRD) Non-Af > 60 (>60) 06/15/19 04:24 Glucose 108 mg/dL (75-110) 06/15/19 04:24 POC Glucose 110 mg/dL (70-110) 06/15/19 07:51 Hemoglobin A1c % 6.5 % (4.7-6.0) H 06/15/19 04:24 Lactic Acid 1.3 mmol/L (0.7-2.1) 06/14/19 11:11 Calcium 8.5 mg/dL (8.4-10.2) 06/15/19 04:24 Magnesium 1.9 mg/dL (1.6-2.3) 06/15/19 04:24 Total Bilirubin 0.7 mg/dL (0.2-1.3) 06/13/19 19:08 Direct Bilirubin 0.3 mg/dL (0.0-0.4) 06/13/19 19:08 Neonat Total Bilirubin Not Reportable 06/13/19 19:08 Neonat Direct Bilirubin Not Reportable 06/13/19 19:08 Neonat Indirect Bili Not Reportable 06/13/19 19:08 AST 35 U/L (17-59) 06/13/19 19:08 ALT 23 U/L (<50) 06/13/19 19:08 Alkaline Phosphatase 79 U/L (38-126) 06/13/19 19:08 Troponin I 0.014 ng/mL 06/14/19 11:11 Total Protein 7.3 g/dL (6.3-8.2) 06/13/19 19:08 Albumin 4.0 g/dL (3.5-5.0) 06/13/19 19:08 Urine Color YELLOW 06/14/19 15:30 Urine Appearance SLIGHTLY-CLOUDY 06/14/19 15:30 Urine pH 6.0 (5.0-9.0) 06/14/19 15:30 Ur Specific [place] 1.013 06/14/19 15:30 Urine Protein 100 mg/dL (NEGATIVE) H 06/14/19 15:30 Urine Glucose (UA) NEGATIVE mg/dL (NEGATIVE) 06/14/19 15:30 Urine Ketones NEGATIVE mg/dL (NEGATIVE) 06/14/19 15:30 Urine Blood MODERATE (NEGATIVE) H 06/14/19 15:30 Urine Nitrite NEGATIVE (NEGATIVE) 06/14/19 15:30 Urine Nitrite (Reflex) NEGATIVE (NEGATIVE) 06/13/19 20:03 Urine Bilirubin NEGATIVE (NEGATIVE) 06/14/19 15:30 Urine Urobilinogen NEGATIVE mg/dL (<2.0) 06/14/19 15:30 Ur Leukocyte Esterase SMALL (NEGATIVE) H 06/14/19 15:30 Leukocyte Esterase Rfl SMALL (NEGATIVE) H 06/13/19 20:03 Urine WBC (Auto) 20 /HPF 06/14/19 15:30 Urine RBC (Auto) 35 /HPF 06/14/19 15:30 Urine WBC (Reflex) > 182 /HPF 06/13/19 20:03 Squamous Epi Cells Auto <1 /HPF 06/14/19 15:30 Urine Mucus (Auto) RARE /LPF 06/14/19 15:30 Urine Ascorbic Acid NEGATIVE (NEGATIVE) 06/14/19 15:30 Influenza A (Rapid) NEGATIVE (NEGATIVE) 06/13/19 20:03 Influenza B (Rapid) NEGATIVE (NEGATIVE) 06/13/19 20:03 06/13/19 06/14/19 06/14/19 19:08 03:09 06:38 Troponin I 0.020 0.027 0.023 06/14/19 11:11 Troponin I 0.014 Impressions: Chest X-Ray 06/13/19 18:41 IMPRESSION: No acute pulmonary findings. Abdomen/Pelvis CT 06/13/19 22:04 IMPRESSION: Subjective urinary bladder wall thickening with minor surrounding inflammation which may reflect nonspecific cystitis. Enlargement of the prostate. Sigmoid diverticulosis. Stable infrarenal abdominal aortic aneurysm. Multiple bilateral renal cysts. Nonobstructing left renal calculus. Fatty infiltrative change to the liver. Recommend follow-up with a vascular surgery and 4 assessment of aortic aneurysm, as per below. For management of fusiform aneurysmal abdominal aortas: <2.6 cm aorta, no follow-up is recommended. 2.6-2.9 cm aorta, recommend follow-up every 5 years for aortas meeting the criteria for AAA (>1.5 x proximal normal segment; no f/u if < 1.5 x proximal normal segment; no f/u for aortas < 2.6 cm). 3.0-3.4 cm AAA, recommend follow-up every 3 years. 3.5-3.9 cm AAA, recommend follow-up every 2 years. 4.0-4.4 cm AAA, recommend follow-up every 12 months and recommend vascular consultation. 4.5-5.4 cm AAA, recommend follow-up every 6 months and recommend vascular consultation. >5.5 cm AAA, recommend referral to vascular specialist. For management of saccular abdominal aortic aneurysms of any size, recommend vascular consultation. Note: for AAA enlargement of >0.5 cm in 6 months or >1 cm in 1 year, recommend vascular consultation. References: J Am Светлана Radiol 2013; 10(10):789-794; J Vasc Surg. 2018; 67:2-77 TECHNICAL DOCUMENTATION: Quality ID # 436: Final reports with documentation of one or more dose reduction techniques (e.g., Automated exposure control, adjustment of the mA and/or kV according to patient size, use of iterative reconstruction technique) copyright 2010 [employer]- All Rights Reserved Plan Time Spent: Greater than 30 Minutes Stroke Is this a Stroke Patient?: No Acute Heart Failure - Is this a Heart Failure Patient?: No
[2019-06-15] MEDS ORDERED: METOPROLOL SUCCINATE 50 MG TAB.SR.24H PO SCH (10:00)
[2019-06-15] MEDS ORDERED: METOPROLOL TARTRATE 50 MG TABLET PO SCH (10:00)
[2019-06-15 13:11] VITALS: BP 152/112
== END 2019-06-15 13:30 | disposition home or self-care (01) ==
LOC: ER 18:09 → INTOOBSV 06-14 02:15 → EH 06-14 02:15 → 3N 06-14 04:14
PROVIDERS: ADMIT Emergency Medicine; ATTEND Emergency Medicine
DX: I71.4 Abdominal aortic aneurysm, without rupture (principal); I48.20 Chronic atrial fibrillation, unspecified; E11.51 Type 2 diabetes mellitus with diabetic peripheral angiopathy without gangrene; R50.9 Fever, unspecified; D72.828 Other elevated white blood cell count; R65.10 Systemic inflammatory response syndrome (SIRS) of non-infectious origin without acute organ dysfunction; R00.0 Tachycardia, unspecified; N39.0 Urinary tract infection, site not specified; R31.9 Hematuria, unspecified; K44.9 Diaphragmatic hernia without obstruction or gangrene; I10 Essential (primary) hypertension; Q61.02 Congenital multiple renal cysts; N20.0 Calculus of kidney; K76.0 Fatty (change of) liver, not elsewhere classified; E78.5 Hyperlipidemia, unspecified; K21.9 Gastro-esophageal reflux disease without esophagitis; K57.30 Diverticulosis of large intestine without perforation or abscess without bleeding; Z87.19 Personal history of other diseases of the digestive system; R09.02 Hypoxemia; N40.0 Benign prostatic hyperplasia without lower urinary tract symptoms; Z79.899 Other long term (current) drug therapy; Z79.84 Long term (current) use of oral hypoglycemic drugs; Z79.01 Long term (current) use of anticoagulants; Z87.891 Personal history of nicotine dependence; Z82.49 Family history of ischemic heart disease and other diseases of the circulatory system
CPT/HCPCS: 93005; 99285; 96361; 96365; 36415 ×3; 87040; 87086; 82962 ×2; 83605 ×2; 83735; 85025; 85027 ×2; 85610 ×3; 87088; 80048; 80053; 81001 ×2; 84484 ×2; 87186; 83036; 82803; 87804; 71045; 74176; 93010; G0378 ×2; A9270 ×14; J2765 ×2; J3490 ×3; J2405; J7120 ×3; J0696 ×2